=== PATIENT | female | born 1970 | race Caucasian/White ===

== ENCOUNTER 2018-12-08 22:02 | Emergency (ER) | payer MEDICAID, OTHER ==
[2018-12-08 22:11] VITALS: BP 134/86
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
[2018-12-08] MEDS ORDERED: Ketorolac 30 MG/ML SDV IVPUSH ONE (22:50)
[2018-12-08] MEDS: Sodium Chloride 0.9% 10 ML Syringe FLUSH PRN ×2 (23:04→23:16)
[2018-12-08] MEDS ORDERED: Pantoprazole 40 MG Vial IVPUSH STA (23:10)
[2018-12-08] MEDS ORDERED: Ondansetron 4 MG/2 ML SDV IVPUSH STA (23:12)
[2018-12-09] MEDS ORDERED: Pantoprazole 40 MG Vial IVPUSH SCH (08:00)
== END 2018-12-09 00:16 | disposition home or self-care (01) ==
LOC: LL.ED 22:02
DX: R09.1 Pleurisy (principal); I25.10 Atherosclerotic heart disease of native coronary artery without angina pectoris; I25.2 Old myocardial infarction; I10 Essential (primary) hypertension; J45.909 Unspecified asthma, uncomplicated; F17.210 Nicotine dependence, cigarettes, uncomplicated; Z88.0 Allergy status to penicillin; Z91.018 Allergy to other foods; Z88.8 Allergy status to other drugs, medicaments and biological substances; Z79.899 Other long term (current) drug therapy
CPT/HCPCS: 36415; 71046; 85025; 96374; 96375; 99284; C9113; J1885; J2405

== ENCOUNTER 2019-02-01 14:15 | Emergency (ER) | payer SELFPAY ==
[2019-02-01] MEDS ORDERED: Famotidine 20 MG/2 ML SDV IVPUSH ONE (14:18)
[2019-02-01] MEDS ORDERED: Sodium Chloride 0.9% 10 ML Syringe FLUSH PRN (14:18)
--- NOTE | 2019-02-01 14:18 | EDM.PDOC ---
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 Qualified Code(s): R10.84 - Generalized abdominal pain - Problem List Review Problem List Initiated/Reviewed/Updated: Yes - My Orders Last 24 Hours: My Active Orders 02/01/19 14:18 Cardiac Monitoring [RC] . DIRECTED EKG Documentation Completion [RC] ASDIRECTED Oxygen Therapy, ED [RC] CONTINUOUS Peripheral IV Care [RC] . DIRECTED Pulse Oximetry [RC] CONTINUOUS Up With Assistance [RC] PFP Vital Signs [RC] PFP Obtain Past Medical Record [OM.PC] Urgent Peripheral IV Insertion Adult [OM.PC] Stat Resuscitation Status Stat 02/01/19 14:20 Blood Culture x2 Reflex Set [OM.PC] Urgent 02/01/19 14:21 Abdomen Series w Chest 1V [CR] Stat 02/01/19 14:22 CULTURE BLOOD [BC] Stat 02/01/19 14:30 CULTURE STREP A CONFIRMATION [RM] Stat STREP SCRN A RAPID W CULT CONF [RM] Stat 02/01/19 14:45 CULTURE BLOOD [BC] Stat 02/01/19 15:15 CULTURE URINE [RM] Routine - Assessment/Plan Last 24 Hours: My Active Orders 02/01/19 14:18 Cardiac Monitoring [RC] . DIRECTED EKG Documentation Completion [RC] ASDIRECTED Oxygen Therapy, ED [RC] CONTINUOUS Peripheral IV Care [RC] . DIRECTED Pulse Oximetry [RC] CONTINUOUS Up With Assistance [RC] PFP Vital Signs [RC] PFP Obtain Past Medical Record [OM.PC] Urgent Peripheral IV Insertion Adult [OM.PC] Stat Resuscitation Status Stat 02/01/19 14:20 Blood Culture x2 Reflex Set [OM.PC] Urgent 02/01/19 14:21 Abdomen Series w Chest 1V [CR] Stat 02/01/19 14:22 CULTURE BLOOD [BC] Stat 02/01/19 14:30 CULTURE STREP A CONFIRMATION [RM] Stat STREP SCRN A RAPID W CULT CONF [RM] Stat 02/01/19 14:45 CULTURE BLOOD [BC] Stat 02/01/19 15:15 CULTURE URINE [RM] Routine Assessment:: As above Plan: As above. Extensive precautions were given to the patient and her sister, who are in agreement with the treatment plan. See Patient Instructions for further treatment and plan.
[2019-02-01 14:55] LABS: CHLORIDE,CL 102 mmol/L (98-107); SODIUM,NA 140 mmol/L (136-145)
[2019-02-01] MEDS ORDERED: LORazepam 2 MG/ML SDV IVPUSH ONE (15:32)
[2019-02-01] MEDS ORDERED: Pantoprazole 40 MG Vial IVPUSH ONE (15:33)
[2019-02-01] MEDS ORDERED: methylPREDNISolone Acetate 80 MG/ML SDV IM ONE (15:52)
[2019-02-01 16:15] VITALS: BP 144/85
== END 2019-02-01 16:40 | disposition home or self-care (01) ==
LOC: LL.ED 14:15
DX: R10.84 Generalized abdominal pain (principal); E03.9 Hypothyroidism, unspecified; Z71.6 Tobacco abuse counseling; F41.8 Other specified anxiety disorders; M25.50 Pain in unspecified joint; M15.0 Primary generalized (osteo)arthritis; J45.20 Mild intermittent asthma, uncomplicated; Z88.0 Allergy status to penicillin; I10 Essential (primary) hypertension; E66.9 Obesity, unspecified; F17.210 Nicotine dependence, cigarettes, uncomplicated; Z91.012 Allergy to eggs; Z79.899 Other long term (current) drug therapy
CPT/HCPCS: 36415; 74022; 80053; 81001; 82150; 82550; 82553; 83605; 83690; 83735; 83880; 84443; 84484; 84550; 85025; 85379; 85610; 85730; 87040; 87081; 87086; 87430; 87804; 93005; 96372; 96374; 96375; 99285-25; C9113; J1040; J2060; J3490

== ENCOUNTER 2019-07-09 17:50 | Observation (INO) | payer MEDICAID, OTHER ==
[2019-07-09] MEDS ORDERED: Aspirin 81 MG Tab.Chew PO ONE (18:13)
[2019-07-09 18:23] LABS: CHLORIDE,CL 104 mmol/L (98-107); SODIUM,NA 138 mmol/L (136-145)
[2019-07-09] MEDS: Sodium Chloride 0.9% 10 ML Syringe FLUSH PRN ×2 (18:31→22:27)
[2019-07-09] MEDS ORDERED: Iopamidol 755 Mg/ML 100 ML Bottle IVPUSH ONE (18:47)
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
[2019-07-09] MEDS ORDERED: Potassium Chloride 20 MEQ Tab.ER PO ONE (19:18)
[2019-07-09] MEDS ORDERED: Sodium Chloride 0.9% 500 ML IV SCH (19:30)
[2019-07-09] MEDS ORDERED: Ketorolac 30 MG/ML SDV IVPUSH ONE (20:05)
[2019-07-09 20:17] LABS: BARBITURATE SCREEN,URINE NEGATIVE (NEGATIVE); BENZODIAZEPINES SCREEN,URINE POSITIVE (NEGATIVE); TCA SCREEN,URINE NEGATIVE (NEGATIVE); THC SCREEN,URINE 50 NG/ML POSITIVE (NEGATIVE)
[2019-07-09] MEDS ORDERED: Pantoprazole 40 MG in Sodium Chloride 0.9% 100 ML IV ONE (21:23)
[2019-07-09] MEDS ORDERED: Morphine 2 MG/ML Syringe IVPUSH PRN (21:23)
[2019-07-09] MEDS ORDERED: Pantoprazole 40 MG Vial IVPUSH ONE (21:23)
[2019-07-09] MEDS ORDERED: Ondansetron 4 MG/2 ML SDV IVPUSH PRN (21:23)
[2019-07-09] MEDS ORDERED: CAFFEINE PO PRN (21:27)
[2019-07-09] MEDS ORDERED: Magnesium Citrate Solution 296 ML Bottle PO ONE (21:27)
[2019-07-09] MEDS ORDERED: Cyclobenzaprine 10 MG Tab PO PRN (21:27)
[2019-07-09] MEDS ORDERED: ACETAMINOPHEN PO PRN (21:27)
[2019-07-09] MEDS ORDERED: [UNRECOGNIZED DRUG - OTHER] PO PRN (21:27)
[2019-07-09] MEDS ORDERED: Albuterol 8 GM Inhaler INH PRN (21:27)
[2019-07-09] MEDS ORDERED: traMADol 50 MG Tab PO ONE (21:34)
[2019-07-10] MEDS: Sodium Chloride 0.9% 10 ML Syringe FLUSH PRN ×4 (02:36→13:58)
[2019-07-10] MEDS: Ketorolac 30 MG/ML SDV IVPUSH SCH ×3 (02:36→13:59)
[2019-07-10 07:38] LABS: CHLORIDE,CL 109 mmol/L (98-107); SODIUM,NA 144 mmol/L (136-145)
[2019-07-10] MEDS ORDERED: FLUoxetine 20 MG Cap PO SCH (08:00)
[2019-07-10] MEDS ORDERED: Diazepam 5 MG Tab PO SCH (08:00)
[2019-07-10] MEDS ORDERED: Iopamidol 612 MG/ML 100 ML Bottle IVPUSH ONE (11:27)
[2019-07-10] MEDS ORDERED: Diatrizoate Meglumine/Diatrizoate Sodium 37% 30 ML Bottle PO ONE (12:50)
[2019-07-10 14:12] VITALS: BP 116/72
--- NOTE | 2019-07-10 14:18 | PCM.DCSUM1 ---
Discharge Summary - Hospital Course Brief History: Admitted for further evaluation of chest pain complaint as well as abdominal pain. Low magnesium. Diagnosis: Stroke: No - Discharge Data Discharge Date: 07/10/19 Discharge Disposition: Home, Self-Care 01 Condition: Good - Discharge Diagnosis/Problem(s) (1) Chest pain SNOMED Code(s): 30531358 ICD Code: R07.9 - CHEST PAIN, UNSPECIFIED Status: Acute Priority: High Current Visit: Yes Onset Date: 07/09/19 Problem Details: Unknown etiology. No acute changes on EKG. Telemetry noted heart rate in 50s and 60s overnight. Troponins negative. Negative PE study. Also had discomfort near left lower rib border on abdominal exam. Chest pain resolved today. Continues to have upper left abdominal discomfort however. Qualifiers: Chest pain type: other chest pain Qualified Code(s): R07.89 - Other chest pain; R07.8 - Other chest pain (2) Left upper quadrant abdominal pain of unknown etiology SNOMED Code(s): 790923990, 754338216 ICD Code: R10.12 - LEFT UPPER QUADRANT PAIN Status: Acute Priority: High Current Visit: Yes Onset Date: 07/09/19 Problem Details: No change overnight or today. Able to eat/drink. No change in pain. Bowel movements made no difference in pain. Negative abdominal CT study. Normal white count/ LFTs. Uncertain if discomfort is related to food intolerance or patient's small hiatal hernia. Pain improves with Toradol. H.Pylorie testing requested (3) Hypomagnesemia SNOMED Code(s): 526614004 ICD Code: E83.42 - HYPOMAGNESEMIA Status: Acute Priority: Medium Current Visit: Yes Problem Details: Normal level today. Continue on supplementary Mg (4) Bradycardia SNOMED Code(s): 64970577 ICD Code: R00.1 - BRADYCARDIA, UNSPECIFIED Status: Acute Priority: Medium Current Visit: Yes Problem Details: No change in pain complaint when heart rate increases into 50-60 range. No SOB or lightheadedness. - Patient Summary/Data Hospital Course: Serial troponins negative. Telemetry showed heart rate in 50s-60s. Afebrile. WBC normal. LFTs/amylase/lipase normal. Patient able to eat and drink. Afebrile. Toradol improved pain. EKGs unremarkable for ischemic change. Negative chest CT in ER. Negative abdominal CT today. No focal cause for patient's pain complaint firmly identified. Patient would like to go home and see how things go over the next 24 hours. - Patient Instructions Diet: Usual Diet as Tolerated (recommend consideration of elimination diet discussed this morning. ) Activity: As Tolerated Driving: Do Not Drive Showering/Bathing: May Shower Other/Special Instructions: Follow up with your primary provider if pain continues more than 24 hours. Follow up otherwise as needed if further problems develop or you get worse. Get Mag level rechecked in one month. - Discharge Plan *PRESCRIPTION DRUG MONITORING PROGRAM REVIEWED*: Not Applicable *COPY OF PRESCRIPTION DRUG MONITORING REPORT IN PATIENT ROBBIN: Not Applicable Prescriptions/Med Rec: Gwen/Cell/Lipas/Malt/Prt/Lac/in [Digestive Enzymes] 1 each PO ASDIRECTED #90 capsule Magnesium Oxide [Magnesium] 500 mg PO DAILY #90 capsule Home Medications: Home Meds Levothyroxine 175 mcg PO DAILY 10/17/13 [History] Cyclobenzaprine [Flexeril] 10 mg PO TID PRN 11/23/17 [History] Diazepam [Valium] 1 tab PO DAILY 11/23/17 [History] Acetaminophen/Caffeine [Excedrin Tension Headache Cplt] 2 tab PO ASDIRECTED PRN 10/09/18 [History] Docosahexanoic Acid [ Dha] 1 tab PO DAILY 10/09/18 [History] FLUoxetine HCl [Prozac] 40 mg PO DAILY 10/09/18 [History] Albuterol Sulfate [Albuterol Sulfate Hfa] 2 puff INH Q6HR PRN 02/01/19 [History] Gwen/Cell/Lipas/Malt/Prt/Lac/in [Digestive Enzymes] 1 each PO ASDIRECTED #90 capsule 07/10/19 [Rx] Magnesium Oxide [Magnesium] 500 mg PO DAILY #90 capsule 07/10/19 [Rx] Patient Handouts: Abdominal Pain, Adult Forms: ED Department Discharge Referrals: PCP,Unknown [Primary Care Provider] - - Discharge Summary/Plan Comment DC Time >30 min.: No - General Info Date of Service: 07/10/19 Admission Dx/Problem (Free Text: Left upper quadrant pain along with left lower anterior and lateral chest pain. Subjective Update: Continues to have LUQ discomfort under left anterior rib margin. No radiation of pain. Chest pain resolved. Able to eat and drink. No fever/chills/nausea/ emesis. Functional Status: Reports: Pain Controlled (around 03/25. Patient declined narcotic pain meds. ). Denies: New Symptoms - Review of Systems General: Reports: Other (patient felt fatigued, mild light headed yesterday. Today those complaints have resolved. ). Denies: Fever, Weakness, Fatigue, Malaise, Chills, Night Sweats HEENT: Denies: Dysphasia, Headaches, Sinus Congestion, Rhinitis, Visual Changes Pulmonary: Reports: No Symptoms. Denies: Shortness of Breath, Pleuritic Chest Pain, Cough, Wheezing Cardiovascular: Denies: Chest Pain, Palpitations, Dyspnea on Exertion, Orthopnea , Lightheadedness Gastrointestinal: Reports: Abdominal Pain. Denies: Constipation, Decreased Appetite, Diarrhea, Difficulty Swallowing, Flatus, Hematochezia, Melena, Nausea , Vomiting Genitourinary: Reports: No Symptoms Musculoskeletal: Reports: No Symptoms (no acute changes from baseline) Skin: Reports: No Symptoms Neurological: Reports: No Symptoms Psychiatric: Reports: No Symptoms - Patient Data Vitals - Most Recent: Last Vital Signs Temp 36.6 C 07/10/19 12:00 Pulse 48 L 07/10/19 12:00 Resp 16 07/10/19 12:00 BP 116/72 07/10/19 12:00 Pulse Ox 96 07/10/19 12:00 Weight - Most Recent: 113.53 kg I&O - Last 24 hours: Intake & Output 07/09/19 07/10/19 07/10/19 22:59 06:59 14:59 Intake Total 1150 210 Output Total 300 100 Balance -300 1050 210 Lab Results - Last 24 hrs: Laboratory Results - last 24 hr 07/09/19 07/09/19 07/09/19 Range/Units 17:28 17:58 17:58 WBC 8.0 (4.0-10.2) K/uL RBC 4.56 (3.77-5.09) M/uL Hgb 14.0 D (11.7-15.5) g/dL Hct 41.2 (34.0-46.0) % MCV 90.4 (84.0-98.0) fL MCH 30.7 (28.2-33.3) pg MCHC 34.0 (31.7-36.0) g/dL RDW 15.0 H (11.2-14.1) % Plt Count 216 (150-350) K/uL Neut % (Auto) 60.0 (45.0-80.0) % Lymph % (Auto) 29.2 (10.0-50.0) % [place] % (Auto) 8.4 (2.0-14.0) % Eos % (Auto) 1.9 (0.0-5.0) % Baso % (Auto) 0.5 (0.0-2.0) % Neut # (Auto) 4.82 (1.40-7.00) K/uL Lymph # (Auto) 2.34 (0.50-3.50) K/uL [place] # (Auto) 0.67 (0.00-1.00) K/uL Eos # (Auto) 0.15 (0.00-0.50) K/uL Baso # (Auto) 0.04 (0.00-0.20) K/uL D-Dimer, Quantitative 563 H (0-400) ng/mL Sodium (136-145) mmol/L Potassium (3.5-5.1) mmol/L Chloride (98-107) mmol/L Carbon Dioxide (21.0-32.0) mmol/L BUN (7-18) mg/dL Creatinine (0.51-1.17) mg/dL Est Cr Clr Drug Dosing mL/min Estimated GFR (MDRD) mL/min Glucose (74-106) mg/dL Calcium (8.5-10.1) mg/dL Magnesium (1.8-2.4) mg/dL Total Bilirubin (0.2-1.0) mg/dL AST (15-37) U/L ALT (12-78) U/L Alkaline Phosphatase (46-116) IU/L Troponin I (0.000-0.056) ng/mL NT-Pro-B Natriuret Pep (0-125) pg/mL Total Protein (6.4-8.2) g/dL Albumin (3.4-5.0) g/dL Amylase (25-115) U/L Lipase (73-393) U/L TSH, Ultra Sensitive 0.296 L (0.358-3.740) mIU/mL Specimen Type Urine Color Urine Appearance Urine pH (5.0-9.0) Ur Specific [place] (1.005-1.030) Urine Protein (NEGATIVE) mg/dL Urine Glucose (UA) (NEGATIVE) mg/dL Urine Ketones (NEGATIVE) mg/dL Urine Occult Blood (NEGATIVE) Urine Nitrite (NEGATIVE) Urine Bilirubin (NEGATIVE) Urine Urobilinogen (0.2-1.0) E.U./dL Ur Leukocyte Esterase (NEGATIVE) Urine RBC /HPF Urine WBC /HPF Ur Epithelial Cells /LPF Urine Bacteria (NONE TO FEW) /HPF Urine Opiates Screen (NEGATIVE) Urine Methadone Screen (NEGATIVE) U Acetaminophen Screen (NEGATIVE) Ur Barbiturates Screen (NEGATIVE) Ur Tricyclics Screen (NEGATIVE) Ur Phencyclidine Scrn (NEGATIVE) Ur Amphetamine Screen (NEGATIVE) U Methamphetamines Scrn (NEGATIVE) U Benzodiazepines Scrn (NEGATIVE) U Cocaine Metab Screen (NEGATIVE) U Marijuana (THC) Screen (NEGATIVE) 07/09/19 07/09/19 07/09/19 Range/Units 17:58 19:00 19:00 WBC (4.0-10.2) K/uL RBC (3.77-5.09) M/uL Hgb (11.7-15.5) g/dL Hct (34.0-46.0) % MCV (84.0-98.0) fL MCH (28.2-33.3) pg MCHC (31.7-36.0) g/dL RDW (11.2-14.1) % Plt Count (150-350) K/uL Neut % (Auto) (45.0-80.0) % Lymph % (Auto) (10.0-50.0) % [place] % (Auto) (2.0-14.0) % Eos % (Auto) (0.0-5.0) % Baso % (Auto) (0.0-2.0) % Neut # (Auto) (1.40-7.00) K/uL Lymph # (Auto) (0.50-3.50) K/uL [place] # (Auto) (0.00-1.00) K/uL Eos # (Auto) (0.00-0.50) K/uL Baso # (Auto) (0.00-0.20) K/uL D-Dimer, Quantitative (0-400) ng/mL Sodium 138 (136-145) mmol/L Potassium 3.4 L (3.5-5.1) mmol/L Chloride 104 (98-107) mmol/L Carbon Dioxide 25.5 (21.0-32.0) mmol/L BUN 17 (7-18) mg/dL Creatinine 0.75 (0.51-1.17) mg/dL Est Cr Clr Drug Dosing 98.12 mL/min Estimated GFR (MDRD) > 60 mL/min Glucose 91 (74-106) mg/dL Calcium 8.9 (8.5-10.1) mg/dL Magnesium 1.5 L (1.8-2.4) mg/dL Total Bilirubin 0.3 (0.2-1.0) mg/dL AST 18 (15-37) U/L ALT 26 (12-78) U/L Alkaline Phosphatase 109 (46-116) IU/L Troponin I 0.000 (0.000-0.056) ng/mL NT-Pro-B Natriuret Pep 289 H (0-125) pg/mL Total Protein 6.9 (6.4-8.2) g/dL Albumin 3.5 (3.4-5.0) g/dL Amylase (25-115) U/L Lipase (73-393) U/L TSH, Ultra Sensitive (0.358-3.740) mIU/mL Specimen Type Urinblad Urine Color Yellow Urine Appearance Clear Urine pH 5.5 (5.0-9.0) Ur Specific [place] 1.015 (1.005-1.030) Urine Protein Negative (NEGATIVE) mg/dL Urine Glucose (UA) Negative (NEGATIVE) mg/dL Urine Ketones Negative (NEGATIVE) mg/dL Urine Occult Blood Negative (NEGATIVE) Urine Nitrite Negative (NEGATIVE) Urine Bilirubin Negative (NEGATIVE) Urine Urobilinogen 0.2 (0.2-1.0) E.U./dL Ur Leukocyte Esterase Negative (NEGATIVE) Urine RBC Not seen /HPF Urine WBC 0-5 /HPF Ur Epithelial Cells Few /LPF Urine Bacteria Few (NONE TO FEW) /HPF Urine Opiates Screen Negative (NEGATIVE) Urine Methadone Screen Negative (NEGATIVE) U Acetaminophen Screen Negative (NEGATIVE) Ur Barbiturates Screen Negative (NEGATIVE) Ur Tricyclics Screen Negative (NEGATIVE) Ur Phencyclidine Scrn Negative (NEGATIVE) Ur Amphetamine Screen Negative (NEGATIVE) U Methamphetamines Scrn Negative (NEGATIVE) U Benzodiazepines Scrn Positive H (NEGATIVE) U Cocaine Metab Screen Negative (NEGATIVE) U Marijuana (THC) Screen Positive H (NEGATIVE) 07/09/19 07/10/19 07/10/19 Range/Units 23:45 07:00 07:10 WBC (4.0-10.2) K/uL RBC (3.77-5.09) M/uL Hgb (11.7-15.5) g/dL Hct (34.0-46.0) % MCV (84.0-98.0) fL MCH (28.2-33.3) pg MCHC (31.7-36.0) g/dL RDW (11.2-14.1) % Plt Count (150-350) K/uL Neut % (Auto) (45.0-80.0) % Lymph % (Auto) (10.0-50.0) % [place] % (Auto) (2.0-14.0) % Eos % (Auto) (0.0-5.0) % Baso % (Auto) (0.0-2.0) % Neut # (Auto) (1.40-7.00) K/uL Lymph # (Auto) (0.50-3.50) K/uL [place] # (Auto) (0.00-1.00) K/uL Eos # (Auto) (0.00-0.50) K/uL Baso # (Auto) (0.00-0.20) K/uL D-Dimer, Quantitative (0-400) ng/mL Sodium 144 (136-145) mmol/L Potassium 4.1 (3.5-5.1) mmol/L Chloride 109 H (98-107) mmol/L Carbon Dioxide 29.5 (21.0-32.0) mmol/L BUN 20 H (7-18) mg/dL Creatinine 0.82 (0.51-1.17) mg/dL Est Cr Clr Drug Dosing 89.98 mL/min Estimated GFR (MDRD) > 60 mL/min Glucose 99 (74-106) mg/dL Calcium 8.3 L (8.5-10.1) mg/dL Magnesium 2.4 (1.8-2.4) mg/dL Total Bilirubin 0.3 (0.2-1.0) mg/dL AST 17 (15-37) U/L ALT 23 (12-78) U/L Alkaline Phosphatase 102 (46-116) IU/L Troponin I 0.000 0.012 (0.000-0.056) ng/mL NT-Pro-B Natriuret Pep (0-125) pg/mL Total Protein 6.0 L (6.4-8.2) g/dL Albumin 2.9 L (3.4-5.0) g/dL Amylase 47 (25-115) U/L Lipase 90 (73-393) U/L TSH, Ultra Sensitive (0.358-3.740) mIU/mL Specimen Type Urine Color Urine Appearance Urine pH (5.0-9.0) Ur Specific [place] (1.005-1.030) Urine Protein (NEGATIVE) mg/dL Urine Glucose (UA) (NEGATIVE) mg/dL Urine Ketones (NEGATIVE) mg/dL Urine Occult Blood (NEGATIVE) Urine Nitrite (NEGATIVE) Urine Bilirubin (NEGATIVE) Urine Urobilinogen (0.2-1.0) E.U./dL Ur Leukocyte Esterase (NEGATIVE) Urine RBC /HPF Urine WBC /HPF Ur Epithelial Cells /LPF Urine Bacteria (NONE TO FEW) /HPF Urine Opiates Screen (NEGATIVE) Urine Methadone Screen (NEGATIVE) U Acetaminophen Screen (NEGATIVE) Ur Barbiturates Screen (NEGATIVE) Ur Tricyclics Screen (NEGATIVE) Ur Phencyclidine Scrn (NEGATIVE) Ur Amphetamine Screen (NEGATIVE) U Methamphetamines Scrn (NEGATIVE) U Benzodiazepines Scrn (NEGATIVE) U Cocaine Metab Screen (NEGATIVE) U Marijuana (THC) Screen (NEGATIVE) 07/10/19 Range/Units 07:10 WBC 5.9 (4.0-10.2) K/uL RBC 4.51 (3.77-5.09) M/uL Hgb 13.8 (11.7-15.5) g/dL Hct 41.7 (34.0-46.0) % MCV 92.5 (84.0-98.0) fL MCH 30.6 (28.2-33.3) pg MCHC 33.1 (31.7-36.0) g/dL RDW 15.3 H (11.2-14.1) % Plt Count 201 (150-350) K/uL Neut % (Auto) 58.1 (45.0-80.0) % Lymph % (Auto) 27.8 (10.0-50.0) % [place] % (Auto) 10.6 (2.0-14.0) % Eos % (Auto) 3.2 (0.0-5.0) % Baso % (Auto) 0.3 (0.0-2.0) % Neut # (Auto) 3.41 (1.40-7.00) K/uL Lymph # (Auto) 1.63 (0.50-3.50) K/uL [place] # (Auto) 0.62 (0.00-1.00) K/uL Eos # (Auto) 0.19 (0.00-0.50) K/uL Baso # (Auto) 0.02 (0.00-0.20) K/uL D-Dimer, Quantitative (0-400) ng/mL Sodium (136-145) mmol/L Potassium (3.5-5.1) mmol/L Chloride (98-107) mmol/L Carbon Dioxide (21.0-32.0) mmol/L BUN (7-18) mg/dL Creatinine (0.51-1.17) mg/dL Est Cr Clr Drug Dosing mL/min Estimated GFR (MDRD) mL/min Glucose (74-106) mg/dL Calcium (8.5-10.1) mg/dL Magnesium (1.8-2.4) mg/dL Total Bilirubin (0.2-1.0) mg/dL AST (15-37) U/L ALT (12-78) U/L Alkaline Phosphatase (46-116) IU/L Troponin I (0.000-0.056) ng/mL NT-Pro-B Natriuret Pep (0-125) pg/mL Total Protein (6.4-8.2) g/dL Albumin (3.4-5.0) g/dL Amylase (25-115) U/L Lipase (73-393) U/L TSH, Ultra Sensitive (0.358-3.740) mIU/mL Specimen Type Urine Color Urine Appearance Urine pH (5.0-9.0) Ur Specific [place] (1.005-1.030) Urine Protein (NEGATIVE) mg/dL Urine Glucose (UA) (NEGATIVE) mg/dL Urine Ketones (NEGATIVE) mg/dL Urine Occult Blood (NEGATIVE) Urine Nitrite (NEGATIVE) Urine Bilirubin (NEGATIVE) Urine Urobilinogen (0.2-1.0) E.U./dL Ur Leukocyte Esterase (NEGATIVE) Urine RBC /HPF Urine WBC /HPF Ur Epithelial Cells /LPF Urine Bacteria (NONE TO FEW) /HPF Urine Opiates Screen (NEGATIVE) Urine Methadone Screen (NEGATIVE) U Acetaminophen Screen (NEGATIVE) Ur Barbiturates Screen (NEGATIVE) Ur Tricyclics Screen (NEGATIVE) Ur Phencyclidine Scrn (NEGATIVE) Ur Amphetamine Screen (NEGATIVE) U Methamphetamines Scrn (NEGATIVE) U Benzodiazepines Scrn (NEGATIVE) U Cocaine Metab Screen (NEGATIVE) U Marijuana (THC) Screen (NEGATIVE) Med Orders - Current: Current Medications Albuterol (Ventolin Hfa) 0 gm INH Q6H PRN PRN Reason: Shortness of Breath Cyclobenzaprine HCl (Flexeril) 10 mg PO TID PRN PRN Reason: Pain Diazepam (Valium.) 5 mg PO DAILY [facility] Last Admin: 07/10/19 08:35 Dose: 5 mg Fluoxetine HCl (Prozac) 40 mg PO DAILY [facility] Last Admin: 07/10/19 08:35 Dose: 40 mg Ketorolac Tromethamine (Toradol) 30 mg IVPUSH Q6H [facility] Stop: 07/14/19 02:01 Last Admin: 07/10/19 13:59 Dose: 30 mg Levothyroxine Sodium (Levothyroxine) 175 mcg PO ACBREAKFAST [facility] Last Admin: 07/10/19 08:35 Dose: 175 mcg Morphine Sulfate (Morphine) 2 mg IVPUSH Q2H PRN PRN Reason: Pain (severe 7-10) Last Admin: 07/10/19 12:28 Dose: 2 mg Ondansetron HCl (Zofran) 4 mg IVPUSH Q6H PRN PRN Reason: Nausea/Vomiting Sodium Chloride (Saline Flush) 10 ml FLUSH ASDIRECTED PRN PRN Reason: Keep Vein Open Last Admin: 07/10/19 13:58 Dose: 10 ml Discontinued Medications Aspirin (Aspirin) 324 mg PO ONETIME ONE Stop: 07/09/19 18:14 Last Admin: 07/09/19 18:29 Dose: 324 mg Diatrizoate Meglum/Diatrizoate Sod (Gastrografin 37%) 30 ml PO ONETIME ONE Stop: 07/10/19 12:51 Last Admin: 07/10/19 13:25 Dose: 30 ml Magnesium Sulfate/Dextrose 1 (gm/ Premix) 100 mls @ 100 mls/hr IV ONETIME ONE Stop: 07/09/19 19:47 Last Admin: 07/09/19 19:12 Dose: 100 mls/hr Sodium Chloride (Normal Saline) 500 mls @ 999 mls/hr IV .BOLUS LEONIE Last Admin: 07/09/19 19:49 Dose: 999 mls/hr Pantoprazole Sodium 40 mg/ (Sodium Chloride) 100 mls @ 200 mls/hr IV ONETIME ONE Stop: 07/09/19 21:52 Last Admin: 07/09/19 23:30 Dose: Not Given Magnesium Sulfate/Dextrose 1 (gm/ Premix) 100 mls @ 100 mls/hr IV ONETIME ONE Stop: 07/09/19 22:30 Last Admin: 07/09/19 22:28 Dose: 100 mls/hr Iopamidol (Isovue-370 (76%)) 100 ml IVPUSH ONETIME ONE Stop: 07/09/19 18:48 Last Admin: 07/09/19 19:27 Dose: 100 ml Iopamidol (Isovue-300 (61%)) 100 ml IVPUSH ONETIME ONE Stop: 07/10/19 11:28 Last Admin: 07/10/19 13:18 Dose: 100 ml Ketorolac Tromethamine (Toradol) 30 mg IVPUSH ONETIME ONE Stop: 07/09/19 20:06 Last Admin: 07/09/19 20:16 Dose: 30 mg Magnesium Citrate (Citrate Of Magnesia) 296 ml PO ONETIME ONE Stop: 07/09/19 21:28 Last Admin: 07/09/19 22:25 Dose: 296 ml Non-Formulary Medication (Acetaminophen/Caffeine [Excedrin Tension Headache Cplt ]) 2 tab PO ASDIRECTED PRN PRN Reason: Headache Pantoprazole Sodium (Protonix Iv) 40 mg IVPUSH ONETIME ONE Stop: 07/09/19 21:24 Last Admin: 07/09/19 22:26 Dose: 40 mg Potassium Chloride (Klor-Con M20) 40 meq PO ONETIME ONE Stop: 07/09/19 19:19 Last Admin: 07/09/19 19:44 Dose: 40 meq Tramadol HCl (Ultram) 100 mg PO ONETIME ONE Stop: 07/09/19 21:35 Last Admin: 07/09/19 22:25 Dose: 100 mg - Exam Quality Assessment: Reports: DVT Prophylaxis General: Reports: Alert, Oriented, Cooperative, No Acute Distress HEENT: Reports: Pupils Equal, Pupils Reactive, EOMI, Mucous Membr. Moist/[place] Neck: Reports: Supple Lungs: Reports: Clear to Auscultation, Normal Respiratory Effort Cardiovascular: Reports: Regular Rate, Regular Rhythm GI/Abdominal Exam: Normal Bowel Sounds, Soft, No Distention, Other (tender with palpation under anterior left rib margin. ). No: Guarding, Rigid, Rebound (Female) Exam: Deferred Rectal (Female) Exam: Deferred Back Exam: Denies: CVA Tenderness (L), CVA Tenderness (R), Muscle Spasm Extremities: Non-Tender, Normal Capillary Refill Skin: Reports: Warm, Dry Neurological: Reports: No New Focal Deficit Psy/Mental Status: Reports: Alert, Normal Affect, Normal Mood EKG INTERPRETATION EKG Date: 07/10/19 Time: 09:13 Rhythm: Other (bradycardia) Rate (Beats/Min): 50 [place]: Normal P-Wave: Present QRS: Normal ST-T: Normal QT: Normal Comparison: No Change
== END 2019-07-10 17:50 | disposition home or self-care (01) ==
LOC: LL.ED 17:50 → UNDOADMOB 20:43 → LL.MS 20:43 → UNDODISOB 07-10 17:50
PROVIDERS: ADMIT Emergency Medicine; ATTEND Emergency Medicine
DX: R07.89 Other chest pain (principal); R10.12 Left upper quadrant pain; E83.42 Hypomagnesemia; R00.1 Bradycardia, unspecified; Z79.899 Other long term (current) drug therapy
CPT/HCPCS: 36415; 71046; 71275; 74019; 74177; 80053; 80305-QW; 81001; 82150; 83690; 83735; 83880; 84443; 84484; 85025; 85379; 87338; 93005; 96365; 96366; 96375; 96376; 99285-25; A9270-GY; C9113; G0378; J1885; J2270; J3475; J7040; Q9963; Q9967

== ENCOUNTER 2019-10-15 12:09 | Emergency (ER) | payer MEDICAID ==
--- NOTE | 2019-10-15 12:20 | EDM.PDOC ---
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 [OM.PC] Stat 10/15/19 12:30 CULTURE BLOOD [BC] Stat CULTURE BLOOD [BC] Stat 10/15/19 13:06 CULTURE URINE [RM] Routine - Assessment/Plan Last 24 Hours: My Active Orders 10/15/19 12:15 CULTURE STREP A CONFIRMATION [RM] Stat STREP SCRN A RAPID W CULT CONF [RM] Stat 10/15/19 12:20 Communication Order [RC] ROUTINE Chest 2V [CR] Stat Blood Culture x2 Reflex Set [OM.PC] Stat Obtain Past Medical Record [OM.PC] Stat 10/15/19 12:30 CULTURE BLOOD [BC] Stat CULTURE BLOOD [BC] Stat 10/15/19 13:06 CULTURE URINE [RM] Routine Assessment:: As above Plan: As above. Extensive precautions were given to the patient, who is in agreement with the treatment plan. See Patient Instructions for further treatment and plan.
[2019-10-15 12:25] VITALS: BP 113/68; PULSE 60
[2019-10-15 12:57] LABS: CHLORIDE,CL 105 mmol/L (98-107); SODIUM,NA 142 mmol/L (136-145)
[2019-10-15] MEDS ORDERED: methylPREDNISolone Acetate 80 MG/ML SDV IM ONE (13:27)
[2019-10-15] MEDS ORDERED: Ketorolac 60 MG/2 ML SDV IM ONE (13:27)
== END 2019-10-15 13:45 | disposition home or self-care (01) ==
LOC: LL.ED 12:09
DX: R91.1 Solitary pulmonary nodule (principal); Z71.6 Tobacco abuse counseling; R09.1 Pleurisy; F19.90 Other psychoactive substance use, unspecified, uncomplicated; M15.0 Primary generalized (osteo)arthritis; J45.20 Mild intermittent asthma, uncomplicated; E03.9 Hypothyroidism, unspecified; E66.9 Obesity, unspecified; Z68.32 Body mass index [BMI] 32.0-32.9, adult; F41.8 Other specified anxiety disorders; Z88.0 Allergy status to penicillin; Z91.018 Allergy to other foods; Z91.012 Allergy to eggs; J45.909 Unspecified asthma, uncomplicated; F17.210 Nicotine dependence, cigarettes, uncomplicated; Z79.890 Hormone replacement therapy
CPT/HCPCS: 36415; 71046; 80053; 81001; 83605; 85025; 87040; 87081; 87086; 87430; 87804; 96372; 99285-25; J1040; J1885

== ENCOUNTER 2019-12-08 19:14 | Observation (INO) | payer MEDICAID ==
[2019-12-08] MEDS ORDERED: Pantoprazole 40 MG Vial IVPUSH ONE (19:37)
[2019-12-08] MEDS ORDERED: Famotidine 20 MG/2 ML SDV IVPUSH ONE (19:37)
[2019-12-08] MEDS ORDERED: Lactated Ringers 1,000 ML IV ONE (19:37)
--- NOTE | 2019-12-08 19:37 | EDM.PDOC ---
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 asthma, uncomplicated Abdominal pain Qualifiers: Abdominal location: generalized Qualified Code(s): R10.84 - Generalized abdominal pain - Discharge Information *PRESCRIPTION DRUG MONITORING PROGRAM REVIEWED*: Not Applicable *COPY OF PRESCRIPTION DRUG MONITORING REPORT IN PATIENT ROBBIN: Not Applicable Instructions: Health Risks of Smoking, Steps to Quit Smoking Forms: ED Department Discharge Care Plan Goals: See plan Sepsis Event Note - Evaluation Sepsis Screening Result: No Definite Risk - Focused Exam Vital Signs: Vital Signs Temp Pulse Resp BP Pulse Ox 12/08/19 19:20 35.8 C 82 18 129/92 H 100 Date Exam was Performed: 12/08/19 Time Exam was Performed: 23:08 - Problem List & Annotations (1) Abdominal pain SNOMED Code(s): 28538141 Code(s): R10.9 - UNSPECIFIED ABDOMINAL PAIN Status: Acute Priority: High Current Visit: Yes Onset Date: ~12/08/19 Annotation/Comment:: Negative CT scan of the abdomen results as above. Per recommendations from the radiologist a laparoscopic exploratory abdominal evaluation may be warranted depending on her clinical course. Per patient's request squamous cell treat with magnesium citrate and MiraLAX. She will be admitted to observation status with Dr. Joaquin to assume care in the a.m.. Recommend repeating x-rays and blood work on 12/10 prior to discharge. Strong anxiety component to patient's symptoms. Qualifiers: Abdominal location: generalized Qualified Code(s): R10.84 - Generalized abdominal pain (2) Asthma SNOMED Code(s): 902209918 Code(s): J45.909 - UNSPECIFIED ASTHMA, UNCOMPLICATED Status: Chronic Priority: Medium Current Visit: Yes Annotation/Comment:: No recent history of cough or bronchitic type symptoms. Symptoms stable with when necessary inhaler use. Qualifiers: Asthma severity: mild Asthma persistence: intermittent Asthma complication type: uncomplicated Qualified Code(s): J45.20 - Mild intermittent asthma, uncomplicated (3) Hypothyroidism (acquired) SNOMED Code(s): 542398753 Code(s): E03.9 - HYPOTHYROIDISM, UNSPECIFIED Status: Chronic Priority: Medium Current Visit: Yes Annotation/Comment:: Currently under therapy, however previously somewhat decreased TSH. Continue to observe closely by regular provider. (4) Illicit drug use, continuous SNOMED Code(s): 824167234 Code(s): F19.90 - OTHER PSYCHOACTIVE SUBSTANCE USE, UNSPECIFIED, UNCOMPLICATED Status: Chronic Priority: Medium Current Visit: Yes Annotation/Comment:: Current marijuana/topical THC use as above. Note previous use of multiple illicit drug use including IV drugs as a teenager. (5) Mixed anxiety depressive disorder SNOMED Code(s): 699037625 Code(s): F41.8 - OTHER SPECIFIED ANXIETY DISORDERS Status: Chronic Priority: Medium Current Visit: Yes Annotation/Comment:: Moderate to poor control based on today's exam. Continue to observe closely by her regular providers. Note history of distant- ? illicit drug use as above. No current medical therapy for depression other than diazepam for her anxiety. Initiate Lexapro in the a.m. (6) Osteoarthritis SNOMED Code(s): 006208552 Code(s): M19.90 - UNSPECIFIED OSTEOARTHRITIS, UNSPECIFIED SITE Status: Chronic Priority: Medium Current Visit: Yes Annotation/Comment:: Note history of chronic pain syndrome otherwise stable by history. Qualifiers: Osteoarthritis location: multiple joints Osteoarthritis type: primary Qualified Code(s): M15.0 - Primary generalized (osteo)arthritis (7) Tobacco abuse counseling SNOMED Code(s): 193457072, 853937141, 247250747 Code(s): Z71.6 - TOBACCO ABUSE COUNSELING Status: Chronic Priority: Medium Current Visit: Yes Annotation/Comment:: Tobacco cessation once again strongly encouraged strongly encouraged with information already previously provided. She was congratulated about trying to quit smoking. (8) Hypomagnesemia SNOMED Code(s): 233112974 Code(s): E83.42 - HYPOMAGNESEMIA Status: Chronic Priority: Medium Current Visit: Yes Annotation/Comment:: Patient has been noncompliant with her magnesium oxide supplement. Note that she did take magnesium citrate 3 days ago, however. - Problem List Review Problem List Initiated/Reviewed/Updated: Yes - My Orders Last 24 Hours: My Active Orders 12/08/19 19:37 Peripheral IV Care [RC] . DIRECTED Abdomen Series w Chest 1V [CR] Stat Sodium Chloride 0.9% [Saline Flush] 10 ml FLUSH ASDIRECTED PRN Obtain Past Medical Record [OM.PC] Urgent Peripheral IV Insertion Adult [OM.PC] Stat Resuscitation Status Stat 12/08/19 20:23 Abdomen Pelvis w Cont [CT] Stat 12/08/19 20:37 Cooling Warming Measures [RC] ASDIRECTED Heat Therapy [OM.PC] Routine 12/08/19 20:45 Magnesium Sulfate/D5W [Magnesium Sulfate in D5W 100 Premix] 1 gm in 100 ml IV ONETIME 12/08/19 21:50 CULTURE URINE [RM] Routine 12/08/19 Breakfast Nothing Per Oral Diet [DIET] - Assessment/Plan Admission H&P: Please use this note as an admission H&P Last 24 Hours: My Active Orders 12/08/19 19:37 Peripheral IV Care [RC] . DIRECTED Abdomen Series w Chest 1V [CR] Stat Sodium Chloride 0.9% [Saline Flush] 10 ml FLUSH ASDIRECTED PRN Obtain Past Medical Record [OM.PC] Urgent Peripheral IV Insertion Adult [OM.PC] Stat Resuscitation Status Stat 12/08/19 20:23 Abdomen Pelvis w Cont [CT] Stat 12/08/19 20:37 Cooling Warming Measures [RC] ASDIRECTED Heat Therapy [OM.PC] Routine 12/08/19 20:45 Magnesium Sulfate/D5W [Magnesium Sulfate in D5W 100 Premix] 1 gm in 100 ml IV ONETIME 12/08/19 21:50 CULTURE URINE [RM] Routine 12/08/19 Breakfast Nothing Per Oral Diet [DIET] Assessment:: As above Plan: As above. Extensive precautions were given to the patient, who is in agreement with the treatment plan. The patient's condition is stable enough for observation status and general supervision. Dr. Joaquin assumes care in the a.m.
[2019-12-08] MEDS ORDERED: Ondansetron 4 MG/2 ML SDV IVPUSH ONE (19:44)
[2019-12-08] MEDS: Sodium Chloride 0.9% 10 ML Syringe FLUSH PRN ×4 (20:05→23:53)
[2019-12-08 20:11] LABS: CHLORIDE,CL 103 mmol/L (98-107); SODIUM,NA 141 mmol/L (136-145)
[2019-12-08] MEDS ORDERED: Diatrizoate Meglumine/Diatrizoate Sodium 37% 30 ML Bottle PO ONE (20:33)
[2019-12-08] MEDS ORDERED: Metoclopramide 10 MG/2 ML SDV IVPUSH ONE (20:39)
[2019-12-08] MEDS ORDERED: Magnesium Sulfate/D5W 1 GM/100 ML BAG IV SCH (20:45)
[2019-12-08] MEDS: Iopamidol 612 MG/ML 100 ML Bottle IVPUSH ONE (22:05)
[2019-12-08] MEDS ORDERED: Acetaminophen 325 MG Tab PO PRN (23:28)
[2019-12-08] MEDS ORDERED: Ondansetron 4 MG/2 ML SDV IVPUSH PRN (23:28)
[2019-12-08] MEDS ORDERED: Magnesium Citrate Solution 296 ML Bottle PO ONE (23:28)
[2019-12-08] MEDS ORDERED: Polyethylene Glycol 3350 Powder 17 GM Packet PO ONE (23:28)
[2019-12-08] MEDS ORDERED: Albuterol 0.083% 2.5 MG/3 ML Neb Soln INH PRN (23:31)
[2019-12-08] MEDS ORDERED: Albuterol/Ipratropium 3.0-0.5 MG/3 ML Neb Soln NEB PRN (23:31)
[2019-12-08] MEDS ORDERED: Ketorolac 30 MG/ML SDV IVPUSH ONE (23:32)
[2019-12-08] MEDS ORDERED: Diazepam 5 MG Tab PO PRN (23:34)
[2019-12-09] MEDS: Ketorolac 15 MG/ML SDV IVPUSH PRN ×3 (05:00→19:50)
[2019-12-09] MEDS: Sodium Chloride 0.9% 10 ML Syringe FLUSH PRN ×2 (05:01→11:05)
[2019-12-09] MEDS: Escitalopram 20 MG Tab PO SCH (07:36)
[2019-12-09] MEDS: Pantoprazole 40 MG Vial IVPUSH SCH ×2 (07:37→19:50)
[2019-12-09] MEDS: Sodium Chloride 0.9% 10 ML Syringe FLUSH SCH ×2 (07:37→19:51)
[2019-12-09] MEDS ORDERED: GI Cocktail Oral Solution 30 ML PO ONE (16:36)
--- NOTE | 2019-12-09 16:41 | PCM.PN ---
- General Info Date of Service: 12/09/19 Admission Dx/Problem (Free Text): Abdominal pain, suspected constipation Subjective Update: Pain has improved. Tolerating some food. Has had multiple bowel movements. Functional Status: Reports: Other (Currently complaining of heart burn 02/23, abdominal discomfort 12/26) - Review of Systems General: Reports: Appetite (decreased). Denies: Fever, Fatigue, Malaise, Chills , Night Sweats HEENT: Reports: No Symptoms Pulmonary: Reports: No Symptoms. Denies: Shortness of Breath, Cough Cardiovascular: Reports: No Symptoms. Denies: Chest Pain Gastrointestinal: Reports: Abdominal Pain (LUQ, 12/26), Decreased Appetite, Other (heartburn). Denies: Nausea, Vomiting Genitourinary: Reports: No Symptoms Musculoskeletal: Reports: No Symptoms Skin: Reports: No Symptoms Neurological: Reports: No Symptoms Psychiatric: Reports: No Symptoms - Patient Data Vitals - Most Recent: Last Vital Signs Temp 36.6 C 12/09/19 15:14 Pulse 60 12/09/19 15:14 Resp 16 12/09/19 15:14 BP 105/68 12/09/19 15:14 Pulse Ox 96 12/09/19 15:14 Weight - Most Recent: 107.91 kg I&O - Last 24 Hours: Intake & Output 12/09/19 12/09/19 12/09/19 06:59 14:59 22:59 Intake Total 1300 1180 500 Output Total 500 100 600 Balance 800 1080 -100 Lab Results Last 24 Hours: Laboratory Results - last 24 hr 12/08/19 12/08/19 12/08/19 Range/Units 19:50 19:50 19:50 WBC 10.1 (4.0-10.2) K/uL RBC 5.11 H (3.77-5.09) M/uL Hgb 15.2 (11.7-15.5) g/dL Hct 46.6 H (34.0-46.0) % MCV 91.2 (84.0-98.0) fL MCH 29.7 (28.2-33.3) pg MCHC 32.6 (31.7-36.0) g/dL RDW 15.1 H (11.2-14.1) % Plt Count 258 (150-350) K/uL Neut % (Auto) 57.6 (45.0-80.0) % Lymph % (Auto) 32.7 (10.0-50.0) % [place] % (Auto) 8.6 (2.0-14.0) % Eos % (Auto) 0.8 (0.0-5.0) % Baso % (Auto) 0.3 (0.0-2.0) % Neut # (Auto) 5.79 (1.40-7.00) K/uL Lymph # (Auto) 3.29 (0.50-3.50) K/uL [place] # (Auto) 0.87 (0.00-1.00) K/uL Eos # (Auto) 0.08 (0.00-0.50) K/uL Baso # (Auto) 0.03 (0.00-0.20) K/uL PT 10.0 (9.5-12.0) SEC INR 0.9 APTT 28.5 (21.0-31.3) SEC Sodium (136-145) mmol/L Potassium (3.5-5.1) mmol/L Chloride (98-107) mmol/L Carbon Dioxide (21.0-32.0) mmol/L BUN (7-18) mg/dL Creatinine (0.51-1.17) mg/dL Est Cr Clr Drug Dosing mL/min Estimated GFR (MDRD) mL/min Glucose (74-106) mg/dL Lactic Acid (0.4-2.0) mmol/L Uric Acid (2.6-7.2) mg/dL Calcium (8.5-10.1) mg/dL Magnesium (1.8-2.4) mg/dL Total Bilirubin (0.2-1.0) mg/dL AST (15-37) U/L ALT (12-78) U/L Alkaline Phosphatase (46-116) IU/L Total Protein (6.4-8.2) g/dL Albumin (3.4-5.0) g/dL Amylase 60 (25-115) U/L Lipase (73-393) U/L Specimen Type Urine Color Urine Appearance Urine pH (5.0-9.0) Ur Specific [place] (1.005-1.030) Urine Protein (NEGATIVE) mg/dL Urine Glucose (UA) (NEGATIVE) mg/dL Urine Ketones (NEGATIVE) mg/dL Urine Occult Blood (NEGATIVE) Urine Nitrite (NEGATIVE) Urine Bilirubin (NEGATIVE) Urine Urobilinogen (0.2-1.0) E.U./dL Ur Leukocyte Esterase (NEGATIVE) Urine RBC /HPF Urine WBC /HPF Ur Epithelial Cells /LPF Urine Bacteria (NONE TO FEW) /HPF 12/08/19 12/08/19 12/08/19 Range/Units 19:50 19:50 21:50 WBC (4.0-10.2) K/uL RBC (3.77-5.09) M/uL Hgb (11.7-15.5) g/dL Hct (34.0-46.0) % MCV (84.0-98.0) fL MCH (28.2-33.3) pg MCHC (31.7-36.0) g/dL RDW (11.2-14.1) % Plt Count (150-350) K/uL Neut % (Auto) (45.0-80.0) % Lymph % (Auto) (10.0-50.0) % [place] % (Auto) (2.0-14.0) % Eos % (Auto) (0.0-5.0) % Baso % (Auto) (0.0-2.0) % Neut # (Auto) (1.40-7.00) K/uL Lymph # (Auto) (0.50-3.50) K/uL [place] # (Auto) (0.00-1.00) K/uL Eos # (Auto) (0.00-0.50) K/uL Baso # (Auto) (0.00-0.20) K/uL PT (9.5-12.0) SEC INR APTT (21.0-31.3) SEC Sodium 141 (136-145) mmol/L Potassium 3.6 (3.5-5.1) mmol/L Chloride 103 (98-107) mmol/L Carbon Dioxide 23.3 (21.0-32.0) mmol/L BUN 17 (7-18) mg/dL Creatinine 0.87 (0.51-1.17) mg/dL Est Cr Clr Drug Dosing 86.47 mL/min Estimated GFR (MDRD) > 60 mL/min Glucose 103 (74-106) mg/dL Lactic Acid 2.0 (0.4-2.0) mmol/L Uric Acid 6.0 (2.6-7.2) mg/dL Calcium 9.0 (8.5-10.1) mg/dL Magnesium 1.6 L (1.8-2.4) mg/dL Total Bilirubin 0.4 (0.2-1.0) mg/dL AST 17 (15-37) U/L ALT 27 (12-78) U/L Alkaline Phosphatase 110 (46-116) IU/L Total Protein 7.6 (6.4-8.2) g/dL Albumin 3.9 (3.4-5.0) g/dL Amylase (25-115) U/L Lipase 101 (73-393) U/L Specimen Type Urinvoid Urine Color Yellow Urine Appearance Slightly cloudy Urine pH 6.0 (5.0-9.0) Ur Specific [place] 1.015 (1.005-1.030) Urine Protein Negative (NEGATIVE) mg/dL Urine Glucose (UA) Negative (NEGATIVE) mg/dL Urine Ketones Negative (NEGATIVE) mg/dL Urine Occult Blood Negative (NEGATIVE) Urine Nitrite Negative (NEGATIVE) Urine Bilirubin Negative (NEGATIVE) Urine Urobilinogen 0.2 (0.2-1.0) E.U./dL Ur Leukocyte Esterase Negative (NEGATIVE) Urine RBC Not seen /HPF Urine WBC 0-5 /HPF Ur Epithelial Cells Moderate H /LPF Urine Bacteria Few (NONE TO FEW) /HPF David Results Last 24 Hours: Microbiology 12/08/19 19:37 Stool Occult Blood (DAVID) - Final Stool / Feces NEGATIVE OCCULT BLOOD REFERENCE RANGE: NEGATIVE Med Orders - Current: Current Medications Acetaminophen (Tylenol) 650 mg PO Q4H PRN PRN Reason: Pain Last Admin: 12/09/19 10:08 Dose: 650 mg Albuterol (Proventil Neb Soln) 2.5 mg INH Q2H PRN PRN Reason: SHORTNESS OF BREATH Albuterol/Ipratropium (Duoneb 3.0-0.5 Mg/3 Ml) 3 ml NEB Q4HRRT PRN PRN Reason: Dyspnea Diazepam (Valium.) 5 mg PO QID PRN PRN Reason: Anxiety Escitalopram Oxalate (Lexapro) 20 mg PO DAILY LEONIE Last Admin: 12/09/19 07:36 Dose: 20 mg Famotidine (Pepcid) 20 mg IVPUSH Q12H [facility] Magnesium Sulfate/Dextrose (Magnesium Sulfate In D5w 100 Premix) 1 gm in 100 mls @ 100 mls/hr IV ONETIME [facility] Last Admin: 12/08/19 22:18 Dose: 100 mls/hr Ketorolac Tromethamine (Toradol) 15 mg IVPUSH Q6H PRN PRN Reason: Pain (severe 7-10) Stop: 12/10/19 08:00 Last Admin: 12/09/19 11:03 Dose: 15 mg Levothyroxine Sodium (Levothyroxine) 175 mcg PO DAILY [facility] Last Admin: 12/09/19 07:36 Dose: 175 mcg Magnesium Oxide (Magnesium Oxide) 800 mg PO QPM [facility] Ondansetron HCl (Zofran) 4 mg IVPUSH Q6H PRN PRN Reason: Nausea/Vomiting Pantoprazole Sodium (Protonix Iv) 40 mg IVPUSH Q12H [facility] Last Admin: 12/09/19 07:37 Dose: 40 mg Sodium Chloride (Saline Flush) 10 ml FLUSH ASDIRECTED PRN PRN Reason: Keep Vein Open Last Admin: 12/09/19 11:05 Dose: 10 ml Sodium Chloride (Saline Flush) 10 ml FLUSH Q12HR [facility] Last Admin: 12/09/19 07:37 Dose: 10 ml Discontinued Medications Diatrizoate Meglum/Diatrizoate Sod (Gastrografin 37%) 30 ml PO ONETIME ONE Stop: 12/08/19 20:34 Diazepam (Valium) 2.5 mg IVPUSH ONETIME ONE Stop: 12/08/19 19:45 Last Admin: 12/08/19 19:56 Dose: 2.5 mg Famotidine (Pepcid) 40 mg IVPUSH ONETIME ONE Stop: 12/08/19 19:38 Last Admin: 12/08/19 19:54 Dose: 40 mg Lactated Ringer's (Ringers, Lactated) 1,000 mls @ 999 mls/hr IV .BOLUS ONE Stop: 12/08/19 20:37 Last Admin: 12/08/19 20:05 Dose: 999 mls/hr Iopamidol (Isovue-300 (61%)) 100 ml IVPUSH ONETIME ONE Stop: 12/08/19 20:33 Last Admin: 12/08/19 22:05 Dose: 100 ml Ketorolac Tromethamine (Toradol) 30 mg IVPUSH ONETIME ONE Stop: 12/08/19 23:33 Last Admin: 12/08/19 23:52 Dose: 30 mg Magnesium Citrate (Citrate Of Magnesia) 0 ml PO ONETIME ONE Stop: 12/08/19 23:29 Last Admin: 12/08/19 23:56 Dose: 296 ml Metoclopramide HCl (Reglan) 10 mg IVPUSH ONETIME ONE Stop: 12/08/19 20:40 Last Admin: 12/08/19 22:14 Dose: 10 mg Ondansetron HCl (Zofran) 4 mg IVPUSH ONETIME ONE Stop: 12/08/19 19:45 Last Admin: 12/08/19 19:58 Dose: 4 mg Pantoprazole Sodium (Protonix Iv) 40 mg IVPUSH ONETIME ONE Stop: 12/08/19 19:38 Last Admin: 12/08/19 19:54 Dose: 40 mg Polyethylene Glycol (Miralax) 17 gm PO ONETIME ONE Stop: 12/08/19 23:29 Last Admin: 12/08/19 23:56 Dose: 17 gm - Exam General: Alert, Oriented, Cooperative, No Acute Distress HEENT: Pupils Equal, Pupils Reactive, EOMI Neck: Supple Lungs: Clear to Auscultation, Normal Respiratory Effort Cardiovascular: Regular Rate, Regular Rhythm GI/Abdominal Exam: Soft, Tender (mild tenderness epigastric/LUQ), Other (Active bowel sounds all quadrants). No: Guarding, Rigid, Rebound (Female) Exam: Deferred Back Exam: No: Muscle Spasm Extremities: Normal Capillary Refill Skin: Warm, Dry Neurological: No New Focal Deficit Psy/Mental Status: Alert, Normal Affect, Normal Mood Sepsis Event Note - Evaluation Sepsis Screening Result: No Definite Risk - Focused Exam Vital Signs: Vital Signs Temp Pulse Resp BP Pulse Ox 12/09/19 15:14 36.6 C 60 16 105/68 96 12/09/19 12:00 99 12/09/19 10:57 36.5 C 54 L 17 105/66 99 12/09/19 08:00 100 12/09/19 07:46 121/64 01/24/20 07:42 36.1 C 63 17 89/46 L 100 Date Exam was Performed: 12/09/19 Time Exam was Performed: 16:36 - Problem List & Annotations (1) Abdominal pain SNOMED Code(s): 11411684 Code(s): R10.9 - UNSPECIFIED ABDOMINAL PAIN Status: Acute Priority: High Current Visit: Yes Onset Date: ~12/08/19 Qualifiers: Abdominal location: generalized Qualified Code(s): R10.84 - Generalized abdominal pain Annotation/Comment:: Negative CT scan of the abdomen results as above. Radiology notes scattered air/fluid levels on plain films which may be suggestive of ileus. Overall abdominal pain/distension has improved today s/p MagCitrate+Miralax. oxide furnace tender LUQ and patient complains of heart burn since lunch. Per recommendations from the radiologist a laparoscopic exploratory abdominal evaluation may be warranted depending on her clinical course. Recommend repeating x-rays and blood work on 12/10 prior to discharge. Strong anxiety component to patient's symptoms. Has long history of abdominal issues/constipation. Pending consult with GI in February. Patient has tried gluten-free diet in addition to dairy-free. Has also elimated some other foods per self report. Has not noticed any improvement with chronic GI issues with these changes. (2) Asthma SNOMED Code(s): 761790696 Code(s): J45.909 - UNSPECIFIED ASTHMA, UNCOMPLICATED Status: Chronic Priority: Medium Current Visit: Yes Qualifiers: Asthma severity: mild Asthma persistence: intermittent Asthma complication type: uncomplicated Qualified Code(s): J45.20 - Mild intermittent asthma, uncomplicated Annotation/Comment:: No recent history of cough or bronchitic type symptoms. Symptoms stable with when necessary inhaler use. (3) Hypomagnesemia SNOMED Code(s): 721616822 Code(s): E83.42 - HYPOMAGNESEMIA Status: Chronic Priority: Medium Current Visit: Yes Annotation/Comment:: Patient has been noncompliant with her magnesium oxide supplement. Note that she did take magnesium citrate 3 days ago, however. (4) Hypothyroidism (acquired) SNOMED Code(s): 209165770 Code(s): E03.9 - HYPOTHYROIDISM, UNSPECIFIED Status: Chronic Priority: Medium Current Visit: Yes Annotation/Comment:: Currently under therapy, however previously somewhat decreased TSH. Continue to observe closely by regular provider. (5) Illicit drug use, continuous SNOMED Code(s): 667423865 Code(s): F19.90 - OTHER PSYCHOACTIVE SUBSTANCE USE, UNSPECIFIED, UNCOMPLICATED Status: Chronic Priority: Medium Current Visit: Yes Annotation/Comment:: Current marijuana/topical THC use as above. Note previous use of multiple illicit drug use including IV drugs as a teenager. Patient denies use since that time. (6) Mixed anxiety depressive disorder SNOMED Code(s): 073661799 Code(s): F41.8 - OTHER SPECIFIED ANXIETY DISORDERS Status: Chronic Priority: Medium Current Visit: Yes Annotation/Comment:: Moderate to poor control based on today's exam. Continue to observe closely by her regular providers. Note history of distant- ? illicit drug use as above. No current medical therapy for depression other than diazepam for her anxiety. Initiate Lexapro in the a.m. (7) Osteoarthritis SNOMED Code(s): 129053828 Code(s): M19.90 - UNSPECIFIED OSTEOARTHRITIS, UNSPECIFIED SITE Status: Chronic Priority: Medium Current Visit: Yes Qualifiers: Osteoarthritis location: multiple joints Osteoarthritis type: primary Qualified Code(s): M15.0 - Primary generalized (osteo)arthritis Annotation/Comment:: Note history of chronic pain syndrome otherwise stable by history. (8) Tobacco abuse counseling SNOMED Code(s): 819440388, 307586559, 420297535 Code(s): Z71.6 - TOBACCO ABUSE COUNSELING Status: Chronic Priority: Medium Current Visit: Yes Annotation/Comment:: Tobacco cessation once again strongly encouraged strongly encouraged with information already previously provided. She was congratulated about trying to quit smoking. - Problem List Review Problem List Initiated/Reviewed/Updated: Yes - My Orders Last 24 Hours: My Active Orders 12/09/19 Breakfast Regular Diet [DIET] - Assessment Assessment:: as above - Plan Plan:: as above. Will keep patient under observation through tomorrow. If she continues to improve will plan on discharge home with close follow up by regular providers.
[2019-12-09] MEDS ORDERED: Magnesium Oxide 400 MG Tab PO SCH (18:00)
[2019-12-09] MEDS: Famotidine 20 MG/2 ML SDV IVPUSH SCH (19:50)
[2019-12-10 07:54] LABS: CHLORIDE,CL 107 mmol/L (98-107); SODIUM,NA 143 mmol/L (136-145)
[2019-12-10] MEDS: Pantoprazole 40 MG Vial IVPUSH SCH (08:15)
[2019-12-10] MEDS: Famotidine 20 MG/2 ML SDV IVPUSH SCH (08:15)
[2019-12-10] MEDS: Sodium Chloride 0.9% 10 ML Syringe FLUSH SCH (08:17)
[2019-12-10] MEDS: Escitalopram 20 MG Tab PO SCH (08:45)
[2019-12-10 09:44] VITALS: BP 104/48; PULSE 60
--- NOTE | 2019-12-10 11:56 | PCM.DCSUM1 ---
Discharge Summary - Hospital Course Brief History: Patient admitted observation for treatment of exacerbation of chronic abdominal pain-suspected to be in part due to constipation. Diagnosis: Stroke: No - Discharge Data Discharge Date: 12/10/19 Discharge Disposition: Home, Self-Care 01 Condition: Good - Referral to Home Health Primary Care Physician: PCP None - Discharge Diagnosis/Problem(s) (1) Abdominal pain SNOMED Code(s): 70234274 ICD Code: R10.9 - UNSPECIFIED ABDOMINAL PAIN Status: Acute Priority: High Current Visit: Yes Onset Date: ~12/08/19 Problem Details: Negative CT scan of abdomen performed in ER. Radiology notes scattered air/fluid levels on plain films which may be suggestive of ileus. Received MagCitrate+Miralax. Promoted multiple stools. Pain today is back to "baseline" per patient. She feels well enough to go home. Has long history of abdominal issues/constipation. Pending consult with GI in February. Patient has tried gluten-free diet in addition to dairy-free. Has also elimated some other foods per self report. Has not noticed any improvement with chronic GI issues with these changes. Qualifiers: Abdominal location: generalized Qualified Code(s): R10.84 - Generalized abdominal pain (2) Asthma SNOMED Code(s): 974154184 ICD Code: J45.909 - UNSPECIFIED ASTHMA, UNCOMPLICATED Status: Chronic Priority: Medium Current Visit: Yes Problem Details: No recent history of cough or bronchitic type symptoms. Symptoms stable with when necessary inhaler use. Qualifiers: Asthma severity: mild Asthma persistence: intermittent Asthma complication type: uncomplicated Qualified Code(s): J45.20 - Mild intermittent asthma, uncomplicated (3) Hypomagnesemia SNOMED Code(s): 463885066 ICD Code: E83.42 - HYPOMAGNESEMIA Status: Chronic Priority: Medium Current Visit: Yes Problem Details: Patient will be continued on oral supplementation s/p discharge. (4) Hypothyroidism (acquired) SNOMED Code(s): 477193577 ICD Code: E03.9 - HYPOTHYROIDISM, UNSPECIFIED Status: Chronic Priority: Medium Current Visit: Yes Problem Details: Currently under therapy, however previously somewhat decreased TSH. Continue to observe closely by regular provider. (5) Mixed anxiety depressive disorder SNOMED Code(s): 830574554 ICD Code: F41.8 - OTHER SPECIFIED ANXIETY DISORDERS Status: Chronic Priority: Medium Current Visit: Yes Problem Details: Not exhibiting excess anxiety today. Refuses Lexapro. To follow up with her primary provider. (6) Osteoarthritis SNOMED Code(s): 197987693 ICD Code: M19.90 - UNSPECIFIED OSTEOARTHRITIS, UNSPECIFIED SITE Status: Chronic Priority: Medium Current Visit: Yes Problem Details: Note history of chronic pain syndrome otherwise stable by history. Qualifiers: Osteoarthritis location: multiple joints Osteoarthritis type: primary Qualified Code(s): M15.0 - Primary generalized (osteo)arthritis (7) Tobacco abuse counseling SNOMED Code(s): 013556740, 506370843, 682545984 ICD Code: Z71.6 - TOBACCO ABUSE COUNSELING Status: Chronic Priority: Medium Current Visit: Yes Problem Details: Tobacco cessation once again strongly encouraged strongly encouraged with information already previously provided. She was congratulated about trying to quit smoking. - Patient Summary/Data Hospital Course: Patient had multiple bowel movements after receiving MagCitrate/Metamucil. Gradual improvement of abdominal discomfort afterwards. Vital signs/labs stable. Afebrile. Is now back to her usual baseline abdominal discomfort per self report. Would like to go home. Is following up with her primary provider regularly and has pending GI consult in February. Patient refused to take Lexapro and it was discontinued. Morning labs today unremarkable. No acute changes noted on abdominal films performed this morning. - Patient Instructions Diet: Elimination Diet (consider looking at protocol listed in [employer] [facility]/ lectin protocol since elimation of gluten and dairy showed limited improvement of symptoms. ) Activity: Apply Ice Driving: May Drive Today Showering/Bathing: May Shower Other/Special Instructions: Take your Magnesium at night as it might interfere with Thyroid medication if taken together. Follow up with GI as scheduled. Follow up with your primary provider in regards to any ongoing concerns in meantime. Digestive enzymes--see if they help your symptoms! Expanding your elimination diet as we discussed may be helpful. Follow up otherwise as needed if you have worsening problems - Discharge Plan *PRESCRIPTION DRUG MONITORING PROGRAM REVIEWED*: Not Applicable *COPY OF PRESCRIPTION DRUG MONITORING REPORT IN PATIENT ROBBIN: Not Applicable Prescriptions/Med Rec: Magnesium Oxide 800 mg PO QPM #90 tablet Home Medications: Home Meds Levothyroxine 175 mcg PO DAILY 10/17/13 [History] Diazepam [Valium] 1 tab PO DAILY 11/23/17 [History] Acetaminophen/Caffeine [Excedrin Tension Headache Cplt] 2 tab PO ASDIRECTED PRN 10/09/18 [History] Docosahexanoic Acid [ Dha] 1 tab PO DAILY 10/09/18 [History] Albuterol Sulfate [Albuterol Sulfate Hfa] 2 puff INH Q6HR PRN 02/01/19 [History] Non-Formulary Medication [NF Drug] 1 ml TOP QID PRN 12/08/19 [History] Magnesium Oxide 800 mg PO QPM #90 tablet 12/10/19 [Rx] Patient Handouts: Health Risks of Smoking, Steps to Quit Smoking Forms: ED Department Discharge Referrals: PCP,None [Primary Care Provider] - - Discharge Summary/Plan Comment DC Time >30 min.: No - General Info Date of Service: 12/10/19 Admission Dx/Problem (Free Text: Abdominal pain, suspected constipation Subjective Update: Feels back to baseline today. Does have chronic daily abdominal discomfort. No acute changes reported. Eating and drinking. Functional Status: Reports: Pain Controlled, Tolerating Diet, Ambulating, Urinating. Denies: New Symptoms - Review of Systems General: Reports: No Symptoms HEENT: Reports: No Symptoms Pulmonary: Reports: No Symptoms. Denies: Shortness of Breath, Cough, Sputum, Hemoptysis, Wheezing Cardiovascular: Reports: No Symptoms. Denies: Chest Pain, Lightheadedness Gastrointestinal: Reports: Abdominal Pain (chronic). Denies: Constipation, Diarrhea, Difficulty Swallowing, Hematochezia, Melena, Nausea, Vomiting Genitourinary: Reports: No Symptoms Musculoskeletal: Reports: Other (has chronic issues with arthritis pain neck/ limbs. No acute changes from baseline) Skin: Reports: No Symptoms Neurological: Reports: No Symptoms Psychiatric: Reports: No Symptoms - Patient Data Vitals - Most Recent: Last Vital Signs Temp 36.2 C 12/10/19 08:00 Pulse 60 12/10/19 08:00 Resp 16 12/10/19 08:00 BP 104/48 L 12/10/19 08:00 Pulse Ox 95 12/10/19 08:00 Weight - Most Recent: 107.91 kg I&O - Last 24 hours: Intake & Output 12/09/19 12/10/19 12/10/19 22:59 06:59 14:59 Intake Total 1460 800 360 Output Total 600 400 Balance 860 400 360 Lab Results - Last 24 hrs: Laboratory Results - last 24 hr 12/10/19 12/10/19 Range/Units 07:20 07:20 WBC 5.7 (4.0-10.2) K/uL RBC 4.41 (3.77-5.09) M/uL Hgb 13.0 D (11.7-15.5) g/dL Hct 41.1 (34.0-46.0) % MCV 93.2 (84.0-98.0) fL MCH 29.5 (28.2-33.3) pg MCHC 31.6 L (31.7-36.0) g/dL RDW 15.0 H (11.2-14.1) % Plt Count 190 (150-350) K/uL Neut % (Auto) 51.2 (45.0-80.0) % Lymph % (Auto) 36.6 (10.0-50.0) % [place] % (Auto) 10.2 (2.0-14.0) % Eos % (Auto) 1.6 (0.0-5.0) % Baso % (Auto) 0.4 (0.0-2.0) % Neut # (Auto) 2.93 (1.40-7.00) K/uL Lymph # (Auto) 2.09 (0.50-3.50) K/uL [place] # (Auto) 0.58 (0.00-1.00) K/uL Eos # (Auto) 0.09 (0.00-0.50) K/uL Baso # (Auto) 0.02 (0.00-0.20) K/uL Sodium 143 (136-145) mmol/L Potassium 4.3 (3.5-5.1) mmol/L Chloride 107 (98-107) mmol/L Carbon Dioxide 28.5 (21.0-32.0) mmol/L BUN 15 (7-18) mg/dL Creatinine 0.98 (0.51-1.17) mg/dL Est Cr Clr Drug Dosing 76.76 mL/min Estimated GFR (MDRD) > 60 mL/min Glucose 94 (74-106) mg/dL Calcium 8.3 L (8.5-10.1) mg/dL Magnesium 1.9 (1.8-2.4) mg/dL Total Bilirubin 0.5 (0.2-1.0) mg/dL AST 16 (15-37) U/L ALT 22 (12-78) U/L Alkaline Phosphatase 86 (46-116) IU/L Total Protein 5.9 L (6.4-8.2) g/dL Albumin 3.0 L (3.4-5.0) g/dL Amylase 58 (25-115) U/L Lipase 65 L (73-393) U/L EDIS Results - Last 24 hrs: Microbiology 12/08/19 21:50 Urine Culture - Final Urine, Clean Catch MIXED POSITIVE LAURA DAY 2 Med Orders - Current: Current Medications Acetaminophen (Tylenol) 650 mg PO Q4H PRN PRN Reason: Pain Last Admin: 12/09/19 10:08 Dose: 650 mg Albuterol (Proventil Neb Soln) 2.5 mg INH Q2H PRN PRN Reason: SHORTNESS OF BREATH Albuterol/Ipratropium (Duoneb 3.0-0.5 Mg/3 Ml) 3 ml NEB Q4HRRT PRN PRN Reason: Dyspnea Diazepam (Valium.) 5 mg PO QID PRN PRN Reason: Anxiety Last Admin: 12/10/19 00:10 Dose: 5 mg Escitalopram Oxalate (Lexapro) 20 mg PO DAILY [facility] Last Admin: 12/10/19 08:45 Dose: Not Given Famotidine (Pepcid) 20 mg IVPUSH Q12H [facility] Last Admin: 12/10/19 08:15 Dose: 20 mg Magnesium Sulfate/Dextrose (Magnesium Sulfate In D5w 100 Premix) 1 gm in 100 mls @ 100 mls/hr IV ONETIME [facility] Last Admin: 12/08/19 22:18 Dose: 100 mls/hr Levothyroxine Sodium (Levothyroxine) 175 mcg PO DAILY [facility] Last Admin: 12/10/19 08:15 Dose: 175 mcg Magnesium Oxide (Magnesium Oxide) 800 mg PO QPM [facility] Last Admin: 12/09/19 17:13 Dose: 800 mg Ondansetron HCl (Zofran) 4 mg IVPUSH Q6H PRN PRN Reason: Nausea/Vomiting Pantoprazole Sodium (Protonix Iv) 40 mg IVPUSH Q12H [facility] Last Admin: 12/10/19 08:15 Dose: 40 mg Sodium Chloride (Saline Flush) 10 ml FLUSH ASDIRECTED PRN PRN Reason: Keep Vein Open Last Admin: 12/09/19 11:05 Dose: 10 ml Sodium Chloride (Saline Flush) 10 ml FLUSH Q12HR [facility] Last Admin: 12/10/19 08:17 Dose: 10 ml Discontinued Medications Al Hydroxide/Mg Hydroxide (Gi Cocktail) 30 ml PO ONETIME ONE Stop: 12/09/19 16:37 Last Admin: 12/09/19 17:13 Dose: 30 ml Diatrizoate Meglum/Diatrizoate Sod (Gastrografin 37%) 30 ml PO ONETIME ONE Stop: 12/08/19 20:34 Last Admin: 12/09/19 20:52 Dose: Not Given Diazepam (Valium) 2.5 mg IVPUSH ONETIME ONE Stop: 12/08/19 19:45 Last Admin: 12/08/19 19:56 Dose: 2.5 mg Famotidine (Pepcid) 40 mg IVPUSH ONETIME ONE Stop: 12/08/19 19:38 Last Admin: 12/08/19 19:54 Dose: 40 mg Lactated Ringer's (Ringers, Lactated) 1,000 mls @ 999 mls/hr IV .BOLUS ONE Stop: 12/08/19 20:37 Last Admin: 12/08/19 20:05 Dose: 999 mls/hr Iopamidol (Isovue-300 (61%)) 100 ml IVPUSH ONETIME ONE Stop: 12/08/19 20:33 Last Admin: 12/08/19 22:05 Dose: 100 ml Ketorolac Tromethamine (Toradol) 30 mg IVPUSH ONETIME ONE Stop: 12/08/19 23:33 Last Admin: 12/08/19 23:52 Dose: 30 mg Ketorolac Tromethamine (Toradol) 15 mg IVPUSH Q6H PRN PRN Reason: Pain (severe 7-10) Stop: 12/10/19 08:00 Last Admin: 12/09/19 19:50 Dose: 15 mg Magnesium Citrate (Citrate Of Magnesia) 0 ml PO ONETIME ONE Stop: 12/08/19 23:29 Last Admin: 12/08/19 23:56 Dose: 296 ml Metoclopramide HCl (Reglan) 10 mg IVPUSH ONETIME ONE Stop: 12/08/19 20:40 Last Admin: 12/08/19 22:14 Dose: 10 mg Ondansetron HCl (Zofran) 4 mg IVPUSH ONETIME ONE Stop: 12/08/19 19:45 Last Admin: 12/08/19 19:58 Dose: 4 mg Pantoprazole Sodium (Protonix Iv) 40 mg IVPUSH ONETIME ONE Stop: 12/08/19 19:38 Last Admin: 12/08/19 19:54 Dose: 40 mg Polyethylene Glycol (Miralax) 17 gm PO ONETIME ONE Stop: 12/08/19 23:29 Last Admin: 12/08/19 23:56 Dose: 17 gm - Exam General: Reports: Alert, Oriented, Cooperative, No Acute Distress HEENT: Reports: Pupils Equal, Pupils Reactive, EOMI, Mucous Membr. Moist/[place] Neck: Reports: Supple Lungs: Reports: Clear to Auscultation, Normal Respiratory Effort Cardiovascular: Reports: Regular Rate, Regular Rhythm GI/Abdominal Exam: Soft, Non-Tender (patient reported no focal increased tenderness with palpation), No Distention, Other (bowel sounds mildly increased throughout. Patient reports she recently had eaten some food. ) (Female) Exam: Deferred Rectal (Female) Exam: Deferred Back Exam: Reports: Normal Inspection Extremities: Normal Capillary Refill Skin: Reports: Warm, Dry Neurological: Reports: No New Focal Deficit Psy/Mental Status: Reports: Alert, Normal Affect, Normal Mood
== END 2019-12-10 12:15 | disposition home or self-care (01) ==
LOC: LL.ED 19:14 → UNDOADMOB 23:08 → LL.MS 23:08
PROVIDERS: ADMIT Family Medicine; ATTEND Emergency Medicine
DX: R10.84 Generalized abdominal pain (principal); J45.20 Mild intermittent asthma, uncomplicated; M15.0 Primary generalized (osteo)arthritis; E03.9 Hypothyroidism, unspecified; F41.8 Other specified anxiety disorders; E83.42 Hypomagnesemia; E78.5 Hyperlipidemia, unspecified; K44.9 Diaphragmatic hernia without obstruction or gangrene; K21.9 Gastro-esophageal reflux disease without esophagitis; G89.4 Chronic pain syndrome; G43.909 Migraine, unspecified, not intractable, without status migrainosus; F17.210 Nicotine dependence, cigarettes, uncomplicated; E66.9 Obesity, unspecified; Z68.33 Body mass index [BMI] 33.0-33.9, adult; Z91.012 Allergy to eggs; Z91.018 Allergy to other foods; Z88.0 Allergy status to penicillin; Z88.6 Allergy status to analgesic agent; Z88.5 Allergy status to narcotic agent; Z79.51 Long term (current) use of inhaled steroids; Z79.899 Other long term (current) drug therapy
CPT/HCPCS: 36415; 74022; 74177; 80053; 81001; 82150; 82272; 83605; 83690; 83735; 84550; 85025; 85610; 85730; 87086; A9270; C9113; J1885; J2405; J2765; J3360; J3475; J3490; J7120; Q9967

== ENCOUNTER 2021-05-01 13:25 | Observation (INO) | payer MEDICAID ==
[2021-05-01] MEDS ORDERED: Aspirin 81 MG Tab.Chew PO ONE (13:40)
[2021-05-01] MEDS ORDERED: GI Cocktail Oral Solution 30 ML PO ONE (13:44)
[2021-05-01] MEDS ORDERED: Sodium Chloride 0.9% 1,000 ML IV ONE (13:44)
[2021-05-01] MEDS ORDERED: Ondansetron 4 MG/2 ML SDV IVPUSH ONE (13:46)
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
[2021-05-01] MEDS: Sodium Chloride 0.9% 10 ML Syringe FLUSH PRN ×2 (13:57→17:04)
[2021-05-01] MEDS ORDERED: Nitroglycerin 0.4 MG Tab.SL SL ONE ×4 (13:58→16:07)
[2021-05-01 14:06] LABS: PTT,PARTIAL THROMBOPLSTIN TIME 24.6 SEC (24.5-32.8)
[2021-05-01 14:17] LABS: CHLORIDE,CL 109 mmol/L (98-107); SODIUM,NA 145 mmol/L (136-145)
[2021-05-01] MEDS ORDERED: Acetaminophen 500 MG Tab PO ONE (14:40)
[2021-05-01] MEDS ORDERED: Ketorolac 30 MG/ML SDV IVPUSH ONE (16:28)
[2021-05-01] MEDS ORDERED: fentaNYL 100 MCG/2 ML SDV IVPUSH ONE (16:28)
[2021-05-01] MEDS ORDERED: Metoclopramide 10 MG/2 ML SDV IVPUSH ONE (16:29)
[2021-05-01] MEDS ORDERED: diphenhydrAMINE 50 MG/ML SDV IVPUSH ONE (16:29)
[2021-05-01] MEDS: Sodium Chloride 0.9% 1,000 ML IV SCH ×2 (17:09→23:43)
[2021-05-01] MEDS ORDERED: LORazepam 2 MG/ML SDV IVPUSH ONE (17:56)
[2021-05-01] MEDS ORDERED: Acetaminophen 325 MG Tab PO PRN (19:59)
[2021-05-01] MEDS ORDERED: Ondansetron 4 MG Tab.DIS PO PRN (19:59)
[2021-05-01] MEDS ORDERED: Albuterol 6.7 GM Inhaler INH PRN (20:01)
[2021-05-01] MEDS: Diazepam 5 MG Tab PO SCH (22:07)
[2021-05-02] MEDS: Sodium Chloride 0.9% 1,000 ML IV SCH (05:55)
[2021-05-02 07:43] LABS: CHLORIDE,CL 113 mmol/L (98-107); SODIUM,NA 146 mmol/L (136-145)
[2021-05-02] MEDS ORDERED: Famotidine 20 MG/2 ML SDV IVPUSH ONE (09:15)
[2021-05-02] MEDS: Pantoprazole 40 MG Vial IVPUSH SCH ×2 (10:10→20:48)
[2021-05-02] MEDS: Sodium Chloride 0.9% 10 ML Syringe FLUSH PRN ×3 (10:17→20:48)
[2021-05-02] MEDS: Furosemide 40 MG/4 ML VIAL IVPUSH SCH ×2 (11:28→18:04)
[2021-05-02] MEDS: Potassium Chloride 20 MEQ Tab.ER PO SCH ×2 (11:29→18:04)
--- NOTE | 2021-05-02 11:36 | PCM.PN ---
- General Info Date of Service: 05/02/21 Admission Dx/Problem (Free Text): Chest pain Functional Status: Reports: Pain Controlled, Tolerating Diet, Ambulating, Urinating, Incentive Spirometry. Denies: New Symptoms Pain Score: 0 (At time of exam however intermittent during this hospitalization) - Review of Systems General: Reports: No Symptoms. Denies: Fever, Weakness, Fatigue, Malaise, Chills, Night Sweats, Appetite HEENT: Denies: Dysphasia, Ear Pain, Eye Pain, Headaches, Post Nasal Drip, Sinus Congestion, Sore Throat, Rhinitis, Visual Changes Pulmonary: Reports: No Symptoms. Denies: Shortness of Breath, Pleuritic Chest Pain, Cough, Sputum, Hemoptysis, Wheezing Cardiovascular: Reports: Chest Pain. Denies: Palpitations, Dyspnea on Exertion, Orthopnea, PND, Edema, Lightheadedness Gastrointestinal: Reports: Other (Normal bowel movement earlier this morning). Denies: Abdominal Pain, Constipation, Decreased Appetite, Diarrhea, Difficulty Swallowing, Flatus, Hematochezia, Melena, Nausea, Vomiting Genitourinary: Reports: No Symptoms. Denies: Dysuria, Frequency, Burning, Urgency, Incontinence, Hematuria, Retention, Flank Pain Musculoskeletal: Reports: No Symptoms. Denies: Neck Pain, Shoulder Pain, Arm Pain, Back Pain, Leg Pain Skin: Reports: Other (Increased edema from IV fluids). Denies: Diaphoresis, Bruising, Pruritis, Rash Neurological: Reports: Other (Patient still sedated from IV fentanyl yesterday.). Denies: Confusion, Headache, Weakness Psychiatric: Reports: Depression, Anxiety. Denies: Confusion, Agitation, Cravings, Hallucinations - Patient Data Vitals - Most Recent: Last Vital Signs Temp 36.1 C 05/02/21 07:28 Pulse 66 05/02/21 07:28 Resp 14 05/02/21 07:28 BP 101/70 05/02/21 07:28 Pulse Ox 96 05/02/21 07:28 Vital Signs - 24 hr 05/01/21 05/01/21 05/01/21 13:26 13:45 14:05 Temperature [ 36.6 C 36.4 C Temporal] Pulse, 85 75 Peripheral [ Right Pulse Oximetry] Respiratory 21 H 18 Rate Blood Pressure 121/75 Blood Pressure [Left Upper Arm ] Blood Pressure 133/81 121/75 [Right Upper Arm] O2 Sat by Pulse 98 99 Oximetry 05/01/21 05/01/21 05/01/21 14:09 14:15 14:24 Temperature [ Temporal] Pulse, 73 Peripheral [ Right Pulse Oximetry] Respiratory 17 Rate Blood Pressure 111/74 103/74 Blood Pressure [Left Upper Arm ] Blood Pressure 103/74 [Right Upper Arm] O2 Sat by Pulse 94 L Oximetry 05/01/21 05/01/21 05/01/21 14:32 15:08 15:30 Temperature [ Temporal] Pulse, 75 62 62 Peripheral [ Right Pulse Oximetry] Respiratory 20 17 16 Rate Blood Pressure Blood Pressure [Left Upper Arm ] Blood Pressure 93/59 L 99/55 L 109/83 [Right Upper Arm] O2 Sat by Pulse 99 99 99 Oximetry 05/01/21 05/01/21 05/01/21 16:02 16:08 16:50 Temperature [ 36.7 C Temporal] Pulse, 60 63 Peripheral [ Right Pulse Oximetry] Respiratory 16 14 Rate Blood Pressure 109/83 Blood Pressure [Left Upper Arm ] Blood Pressure 97/59 L 102/66 [Right Upper Arm] O2 Sat by Pulse 97 98 Oximetry 05/01/21 05/01/21 05/01/21 17:32 19:07 23:44 Temperature [ 36.8 C 36.9 C Temporal] Pulse, 54 L 66 58 L Peripheral [ Right Pulse Oximetry] Respiratory 17 18 16 Rate Blood Pressure Blood Pressure 98/54 L [Left Upper Arm ] Blood Pressure 98/72 106/72 [Right Upper Arm] O2 Sat by Pulse 99 99 94 L Oximetry 05/02/21 05/02/21 04:00 07:28 Temperature [ 36.6 C 36.1 C Temporal] Pulse, 65 66 Peripheral [ Right Pulse Oximetry] Respiratory 16 14 Rate Blood Pressure Blood Pressure 96/59 L 101/70 [Left Upper Arm ] Blood Pressure [Right Upper Arm] O2 Sat by Pulse 95 96 Oximetry Weight - Most Recent: 112.899 kg I&O - Last 24 Hours: Intake & Output 05/01/21 05/02/21 05/02/21 22:59 06:59 14:59 Intake Total 2200 960 Output Total 350 Balance 1850 960 Imaging Impressions - Last 24 Hours: air sampling and monitoring shows intermittent moderate bradycardia in the 50s with average heart rate ranging in the 50s to 70s with some sinus arrhythmia noted but no other ectopy Lab Results Last 24 Hours: Laboratory Results - last 24 hr 05/01/21 05/01/21 05/01/21 Range/Units 13:30 13:30 13:30 WBC 7.5 (4.0-10.2) K/uL RBC 5.11 H (3.77-5.09) M/uL Hgb 15.2 D (11.7-15.5) g/dL Hct 45.9 (34.0-46.0) % MCV 89.8 D (84.0-98.0) fL MCH 29.7 (28.2-33.3) pg MCHC 33.1 (31.7-36.0) g/dL RDW 15.0 H (11.2-14.1) % Plt Count 245 (150-350) K/uL Neut % (Auto) 61.7 (45.0-80.0) % Lymph % (Auto) 27.1 (10.0-50.0) % [place] % (Auto) 8.1 (2.0-14.0) % Eos % (Auto) 2.7 (0.0-5.0) % Baso % (Auto) 0.4 (0.0-2.0) % Neut # (Auto) 4.63 (1.40-7.00) K/uL Lymph # (Auto) 2.03 (0.50-3.50) K/uL [place] # (Auto) 0.61 (0.00-1.00) K/uL Eos # (Auto) 0.20 (0.00-0.50) K/uL Baso # (Auto) 0.03 (0.00-0.20) K/uL PT 9.7 (9.5-12.0) SEC INR 1.0 APTT 24.6 (24.5-32.8) SEC D-Dimer, Quantitative (0-400) ng/mL Sodium 145 (136-145) mmol/L Potassium 3.7 (3.5-5.1) mmol/L Chloride 109 H (98-107) mmol/L Carbon Dioxide 22.1 (21.0-32.0) mmol/L BUN 16 (7-18) mg/dL Creatinine 0.77 (0.51-1.17) mg/dL Est Cr Clr Drug Dosing TNP Estimated GFR (MDRD) > 60 mL/min Glucose 93 (70-99) mg/dL Calcium 8.9 (8.5-10.1) mg/dL Magnesium 1.9 (1.8-2.4) mg/dL Total Bilirubin 0.4 (0.2-1.0) mg/dL Direct Bilirubin (0.0-0.2) mg/dL Indirect Bilirubin AST 18 (15-37) U/L ALT 37 (12-78) U/L Alkaline Phosphatase 105 (46-116) IU/L Troponin I 0.008 (0.000-0.056) ng/mL NT-Pro-B Natriuret Pep (0-125) pg/mL Total Protein 7.0 (6.4-8.2) g/dL Albumin 3.5 (3.4-5.0) g/dL Globulin Albumin/Globulin Ratio Amylase 66 (25-115) U/L Lipase 95 (73-393) U/L 05/01/21 05/01/21 05/01/21 Range/Units 16:50 16:50 19:37 WBC (4.0-10.2) K/uL RBC (3.77-5.09) M/uL Hgb (11.7-15.5) g/dL Hct (34.0-46.0) % MCV (84.0-98.0) fL MCH (28.2-33.3) pg MCHC (31.7-36.0) g/dL RDW (11.2-14.1) % Plt Count (150-350) K/uL Neut % (Auto) (45.0-80.0) % Lymph % (Auto) (10.0-50.0) % [place] % (Auto) (2.0-14.0) % Eos % (Auto) (0.0-5.0) % Baso % (Auto) (0.0-2.0) % Neut # (Auto) (1.40-7.00) K/uL Lymph # (Auto) (0.50-3.50) K/uL [place] # (Auto) (0.00-1.00) K/uL Eos # (Auto) (0.00-0.50) K/uL Baso # (Auto) (0.00-0.20) K/uL PT (9.5-12.0) SEC INR APTT (24.5-32.8) SEC D-Dimer, Quantitative 267 (0-400) ng/mL Sodium (136-145) mmol/L Potassium (3.5-5.1) mmol/L Chloride (98-107) mmol/L Carbon Dioxide (21.0-32.0) mmol/L BUN (7-18) mg/dL Creatinine (0.51-1.17) mg/dL Est Cr Clr Drug Dosing Estimated GFR (MDRD) mL/min Glucose (70-99) mg/dL Calcium (8.5-10.1) mg/dL Magnesium (1.8-2.4) mg/dL Total Bilirubin (0.2-1.0) mg/dL Direct Bilirubin (0.0-0.2) mg/dL Indirect Bilirubin AST (15-37) U/L ALT (12-78) U/L Alkaline Phosphatase (46-116) IU/L Troponin I 0.011 0.013 (0.000-0.056) ng/mL NT-Pro-B Natriuret Pep (0-125) pg/mL Total Protein (6.4-8.2) g/dL Albumin (3.4-5.0) g/dL Globulin Albumin/Globulin Ratio Amylase (25-115) U/L Lipase (73-393) U/L 05/02/21 05/02/21 05/02/21 Range/Units 07:15 07:15 07:15 WBC 5.5 (4.0-10.2) K/uL RBC 4.49 (3.77-5.09) M/uL Hgb 13.1 D (11.7-15.5) g/dL Hct 41.5 (34.0-46.0) % MCV 92.4 (84.0-98.0) fL MCH 29.2 (28.2-33.3) pg MCHC 31.6 L (31.7-36.0) g/dL RDW 15.0 H (11.2-14.1) % Plt Count 185 (150-350) K/uL Neut % (Auto) 54.3 (45.0-80.0) % Lymph % (Auto) 32.4 (10.0-50.0) % [place] % (Auto) 10.3 (2.0-14.0) % Eos % (Auto) 2.5 (0.0-5.0) % Baso % (Auto) 0.5 (0.0-2.0) % Neut # (Auto) 2.99 (1.40-7.00) K/uL Lymph # (Auto) 1.79 (0.50-3.50) K/uL [place] # (Auto) 0.57 (0.00-1.00) K/uL Eos # (Auto) 0.14 (0.00-0.50) K/uL Baso # (Auto) 0.03 (0.00-0.20) K/uL PT (9.5-12.0) SEC INR APTT (24.5-32.8) SEC D-Dimer, Quantitative (0-400) ng/mL Sodium 146 H (136-145) mmol/L Potassium 4.3 (3.5-5.1) mmol/L Chloride 113 H (98-107) mmol/L Carbon Dioxide 23.8 (21.0-32.0) mmol/L BUN 16 (7-18) mg/dL Creatinine 0.83 (0.51-1.17) mg/dL Est Cr Clr Drug Dosing 89.62 Estimated GFR (MDRD) > 60 mL/min Glucose 94 (70-99) mg/dL Calcium 7.5 L (8.5-10.1) mg/dL Magnesium 1.8 (1.8-2.4) mg/dL Total Bilirubin (0.2-1.0) mg/dL Direct Bilirubin (0.0-0.2) mg/dL Indirect Bilirubin AST (15-37) U/L ALT (12-78) U/L Alkaline Phosphatase (46-116) IU/L Troponin I 0.023 (0.000-0.056) ng/mL NT-Pro-B Natriuret Pep 288 H (0-125) pg/mL Total Protein (6.4-8.2) g/dL Albumin (3.4-5.0) g/dL Globulin Albumin/Globulin Ratio Amylase 78 (25-115) U/L Lipase 308 (73-393) U/L 05/02/21 Range/Units 07:15 WBC (4.0-10.2) K/uL RBC (3.77-5.09) M/uL Hgb (11.7-15.5) g/dL Hct (34.0-46.0) % MCV (84.0-98.0) fL MCH (28.2-33.3) pg MCHC (31.7-36.0) g/dL RDW (11.2-14.1) % Plt Count (150-350) K/uL Neut % (Auto) (45.0-80.0) % Lymph % (Auto) (10.0-50.0) % [place] % (Auto) (2.0-14.0) % Eos % (Auto) (0.0-5.0) % Baso % (Auto) (0.0-2.0) % Neut # (Auto) (1.40-7.00) K/uL Lymph # (Auto) (0.50-3.50) K/uL [place] # (Auto) (0.00-1.00) K/uL Eos # (Auto) (0.00-0.50) K/uL Baso # (Auto) (0.00-0.20) K/uL PT (9.5-12.0) SEC INR APTT (24.5-32.8) SEC D-Dimer, Quantitative (0-400) ng/mL Sodium (136-145) mmol/L Potassium (3.5-5.1) mmol/L Chloride (98-107) mmol/L Carbon Dioxide (21.0-32.0) mmol/L BUN (7-18) mg/dL Creatinine (0.51-1.17) mg/dL Est Cr Clr Drug Dosing Estimated GFR (MDRD) mL/min Glucose (70-99) mg/dL Calcium (8.5-10.1) mg/dL Magnesium (1.8-2.4) mg/dL Total Bilirubin 0.2 (0.2-1.0) mg/dL Direct Bilirubin 0.1 (0.0-0.2) mg/dL Indirect Bilirubin 0.1 AST 16 (15-37) U/L ALT 26 (12-78) U/L Alkaline Phosphatase 83 (46-116) IU/L Troponin I (0.000-0.056) ng/mL NT-Pro-B Natriuret Pep (0-125) pg/mL Total Protein 5.4 L (6.4-8.2) g/dL Albumin 2.6 L (3.4-5.0) g/dL Globulin 2.8 Albumin/Globulin Ratio 0.93 Amylase (25-115) U/L Lipase (73-393) U/L Laboratory Tests 05/01/21 05/01/21 05/01/21 Range/Units 13:30 13:30 13:30 WBC 7.5 (4.0-10.2) K/uL RBC 5.11 H (3.77-5.09) M/uL Hgb 15.2 D (11.7-15.5) g/dL Hct 45.9 (34.0-46.0) % MCV 89.8 D (84.0-98.0) fL MCH 29.7 (28.2-33.3) pg MCHC 33.1 (31.7-36.0) g/dL RDW 15.0 H (11.2-14.1) % Plt Count 245 (150-350) K/uL Neut % (Auto) 61.7 (45.0-80.0) % Lymph % (Auto) 27.1 (10.0-50.0) % [place] % (Auto) 8.1 (2.0-14.0) % Eos % (Auto) 2.7 (0.0-5.0) % Baso % (Auto) 0.4 (0.0-2.0) % Neut # (Auto) 4.63 (1.40-7.00) K/uL Lymph # (Auto) 2.03 (0.50-3.50) K/uL [place] # (Auto) 0.61 (0.00-1.00) K/uL Eos # (Auto) 0.20 (0.00-0.50) K/uL Baso # (Auto) 0.03 (0.00-0.20) K/uL PT 9.7 (9.5-12.0) SEC INR 1.0 APTT 24.6 (24.5-32.8) SEC D-Dimer, Quantitative (0-400) ng/mL Sodium 145 (136-145) mmol/L Potassium 3.7 (3.5-5.1) mmol/L Chloride 109 H (98-107) mmol/L Carbon Dioxide 22.1 (21.0-32.0) mmol/L BUN 16 (7-18) mg/dL Creatinine 0.77 (0.51-1.17) mg/dL Est Cr Clr Drug Dosing TNP Estimated GFR (MDRD) > 60 mL/min Glucose 93 (70-99) mg/dL Calcium 8.9 (8.5-10.1) mg/dL Magnesium 1.9 (1.8-2.4) mg/dL Total Bilirubin 0.4 (0.2-1.0) mg/dL Direct Bilirubin (0.0-0.2) mg/dL Indirect Bilirubin AST 18 (15-37) U/L ALT 37 (12-78) U/L Alkaline Phosphatase 105 (46-116) IU/L Troponin I 0.008 (0.000-0.056) ng/mL NT-Pro-B Natriuret Pep (0-125) pg/mL Total Protein 7.0 (6.4-8.2) g/dL Albumin 3.5 (3.4-5.0) g/dL Globulin Albumin/Globulin Ratio Amylase 66 (25-115) U/L Lipase 95 (73-393) U/L 05/01/21 05/01/21 05/01/21 Range/Units 16:50 16:50 19:37 WBC (4.0-10.2) K/uL RBC (3.77-5.09) M/uL Hgb (11.7-15.5) g/dL Hct (34.0-46.0) % MCV (84.0-98.0) fL MCH (28.2-33.3) pg MCHC (31.7-36.0) g/dL RDW (11.2-14.1) % Plt Count (150-350) K/uL Neut % (Auto) (45.0-80.0) % Lymph % (Auto) (10.0-50.0) % [place] % (Auto) (2.0-14.0) % Eos % (Auto) (0.0-5.0) % Baso % (Auto) (0.0-2.0) % Neut # (Auto) (1.40-7.00) K/uL Lymph # (Auto) (0.50-3.50) K/uL [place] # (Auto) (0.00-1.00) K/uL Eos # (Auto) (0.00-0.50) K/uL Baso # (Auto) (0.00-0.20) K/uL PT (9.5-12.0) SEC INR APTT (24.5-32.8) SEC D-Dimer, Quantitative 267 (0-400) ng/mL Sodium (136-145) mmol/L Potassium (3.5-5.1) mmol/L Chloride (98-107) mmol/L Carbon Dioxide (21.0-32.0) mmol/L BUN (7-18) mg/dL Creatinine (0.51-1.17) mg/dL Est Cr Clr Drug Dosing Estimated GFR (MDRD) mL/min Glucose (70-99) mg/dL Calcium (8.5-10.1) mg/dL Magnesium (1.8-2.4) mg/dL Total Bilirubin (0.2-1.0) mg/dL Direct Bilirubin (0.0-0.2) mg/dL Indirect Bilirubin AST (15-37) U/L ALT (12-78) U/L Alkaline Phosphatase (46-116) IU/L Troponin I 0.011 0.013 (0.000-0.056) ng/mL NT-Pro-B Natriuret Pep (0-125) pg/mL Total Protein (6.4-8.2) g/dL Albumin (3.4-5.0) g/dL Globulin Albumin/Globulin Ratio Amylase (25-115) U/L Lipase (73-393) U/L 05/02/21 05/02/21 05/02/21 Range/Units 07:15 07:15 07:15 WBC 5.5 (4.0-10.2) K/uL RBC 4.49 (3.77-5.09) M/uL Hgb 13.1 D (11.7-15.5) g/dL Hct 41.5 (34.0-46.0) % MCV 92.4 (84.0-98.0) fL MCH 29.2 (28.2-33.3) pg MCHC 31.6 L (31.7-36.0) g/dL RDW 15.0 H (11.2-14.1) % Plt Count 185 (150-350) K/uL Neut % (Auto) 54.3 (45.0-80.0) % Lymph % (Auto) 32.4 (10.0-50.0) % [place] % (Auto) 10.3 (2.0-14.0) % Eos % (Auto) 2.5 (0.0-5.0) % Baso % (Auto) 0.5 (0.0-2.0) % Neut # (Auto) 2.99 (1.40-7.00) K/uL Lymph # (Auto) 1.79 (0.50-3.50) K/uL [place] # (Auto) 0.57 (0.00-1.00) K/uL Eos # (Auto) 0.14 (0.00-0.50) K/uL Baso # (Auto) 0.03 (0.00-0.20) K/uL PT (9.5-12.0) SEC INR APTT (24.5-32.8) SEC D-Dimer, Quantitative (0-400) ng/mL Sodium 146 H (136-145) mmol/L Potassium 4.3 (3.5-5.1) mmol/L Chloride 113 H (98-107) mmol/L Carbon Dioxide 23.8 (21.0-32.0) mmol/L BUN 16 (7-18) mg/dL Creatinine 0.83 (0.51-1.17) mg/dL Est Cr Clr Drug Dosing 89.62 Estimated GFR (MDRD) > 60 mL/min Glucose 94 (70-99) mg/dL Calcium 7.5 L (8.5-10.1) mg/dL Magnesium 1.8 (1.8-2.4) mg/dL Total Bilirubin (0.2-1.0) mg/dL Direct Bilirubin (0.0-0.2) mg/dL Indirect Bilirubin AST (15-37) U/L ALT (12-78) U/L Alkaline Phosphatase (46-116) IU/L Troponin I 0.023 (0.000-0.056) ng/mL NT-Pro-B Natriuret Pep 288 H (0-125) pg/mL Total Protein (6.4-8.2) g/dL Albumin (3.4-5.0) g/dL Globulin Albumin/Globulin Ratio Amylase 78 (25-115) U/L Lipase 308 (73-393) U/L 05/02/21 Range/Units 07:15 WBC (4.0-10.2) K/uL RBC (3.77-5.09) M/uL Hgb (11.7-15.5) g/dL Hct (34.0-46.0) % MCV (84.0-98.0) fL MCH (28.2-33.3) pg MCHC (31.7-36.0) g/dL RDW (11.2-14.1) % Plt Count (150-350) K/uL Neut % (Auto) (45.0-80.0) % Lymph % (Auto) (10.0-50.0) % [place] % (Auto) (2.0-14.0) % Eos % (Auto) (0.0-5.0) % Baso % (Auto) (0.0-2.0) % Neut # (Auto) (1.40-7.00) K/uL Lymph # (Auto) (0.50-3.50) K/uL [place] # (Auto) (0.00-1.00) K/uL Eos # (Auto) (0.00-0.50) K/uL Baso # (Auto) (0.00-0.20) K/uL PT (9.5-12.0) SEC INR APTT (24.5-32.8) SEC D-Dimer, Quantitative (0-400) ng/mL Sodium (136-145) mmol/L Potassium (3.5-5.1) mmol/L Chloride (98-107) mmol/L Carbon Dioxide (21.0-32.0) mmol/L BUN (7-18) mg/dL Creatinine (0.51-1.17) mg/dL Est Cr Clr Drug Dosing Estimated GFR (MDRD) mL/min Glucose (70-99) mg/dL Calcium (8.5-10.1) mg/dL Magnesium (1.8-2.4) mg/dL Total Bilirubin 0.2 (0.2-1.0) mg/dL Direct Bilirubin 0.1 (0.0-0.2) mg/dL Indirect Bilirubin 0.1 AST 16 (15-37) U/L ALT 26 (12-78) U/L Alkaline Phosphatase 83 (46-116) IU/L Troponin I (0.000-0.056) ng/mL NT-Pro-B Natriuret Pep (0-125) pg/mL Total Protein 5.4 L (6.4-8.2) g/dL Albumin 2.6 L (3.4-5.0) g/dL Globulin 2.8 Albumin/Globulin Ratio 0.93 Amylase (25-115) U/L Lipase (73-393) U/L David Results Last 24 Hours: None Med Orders - Current: Current Medications Acetaminophen (Acetaminophen 325 Mg Tab) 650 mg PO Q4H PRN PRN Reason: Pain (Mild 1-3)/fever Last Admin: 05/02/21 11:29 Dose: 650 mg Documented by: Albuterol (Albuterol 6.7 Gm Inhaler) 0 gm INH Q6HR PRN PRN Reason: Shortness of Breath Diazepam (Diazepam 5 Mg Tab) 5 mg PO BEDTIME [facility] Last Admin: 05/01/21 22:07 Dose: Not Given Documented by: Furosemide (Furosemide 40 Mg/4 Ml Vial) 40 mg IVPUSH Q8H [facility] Last Admin: 05/02/21 11:28 Dose: 40 mg Documented by: Sodium Chloride (Normal Saline) 1,000 mls @ 150 mls/hr IV ASDIRECTED [facility] Last Admin: 05/02/21 05:55 Dose: 150 mls/hr Documented by: Levothyroxine Sodium (Levothyroxine 175 Mcg Tab) 175 mcg PO DAILY [facility] Last Admin: 05/02/21 07:38 Dose: 175 mcg Documented by: Ondansetron HCl (Ondansetron 4 Mg Tab.Dis) 4 mg PO Q4H PRN PRN Reason: Nausea/Vomiting Pantoprazole Sodium (Pantoprazole 40 Mg Vial) 40 mg IVPUSH Q12H [facility] Last Admin: 05/02/21 10:10 Dose: 40 mg Documented by: Potassium Chloride (Potassium Chloride 20 Meq Tab.Er) 20 meq PO TID LEONIE Last Admin: 05/02/21 11:29 Dose: 20 meq Documented by: Sodium Chloride (Sodium Chloride 0.9% 10 Ml Syringe) 10 ml FLUSH ASDIRECTED PRN PRN Reason: Keep Vein Open Last Admin: 05/02/21 11:28 Dose: 10 ml Documented by: Discontinued Medications Acetaminophen (Acetaminophen 500 Mg Tab) 1,000 mg PO ONETIME ONE Stop: 05/01/21 14:41 Last Admin: 05/01/21 15:16 Dose: 1,000 mg Documented by: Al Hydroxide/Mg Hydroxide (Gi Cocktail Oral Solution 30 Ml) 30 ml PO ONETIME ONE Stop: 05/01/21 13:45 Last Admin: 05/01/21 13:49 Dose: 30 ml Documented by: Aspirin (Aspirin 81 Mg Tab.Chew) 324 mg PO ONETIME ONE Stop: 05/01/21 13:41 Last Admin: 05/01/21 13:49 Dose: 324 mg Documented by: Diphenhydramine HCl (Diphenhydramine 50 Mg/Ml Sdv) 50 mg IVPUSH ONETIME ONE Stop: 05/01/21 16:30 Last Admin: 05/01/21 16:57 Dose: 50 mg Documented by: Famotidine (Famotidine 20 Mg/2 Ml Sdv) 40 mg IVPUSH ONETIME ONE Stop: 05/02/21 09:16 Last Admin: 05/02/21 10:17 Dose: 40 mg Documented by: Fentanyl (Fentanyl 100 Mcg/2 Ml Sdv) 100 mcg IVPUSH ONETIME ONE Stop: 05/01/21 16:29 Last Admin: 05/01/21 16:54 Dose: 100 mcg Documented by: Sodium Chloride (Normal Saline) 1,000 mls @ 999 mls/hr IV .BOLUS ONE Stop: 05/01/21 14:44 Last Admin: 05/01/21 13:57 Dose: 999 mls/hr Documented by: Ketorolac Tromethamine (Ketorolac 30 Mg/Ml Sdv) 30 mg IVPUSH ONETIME ONE Stop: 05/01/21 16:29 Last Admin: 05/01/21 16:53 Dose: 30 mg Documented by: Lorazepam (Lorazepam 2 Mg/Ml Sdv) 1 mg IVPUSH ONETIME ONE Stop: 05/01/21 17:57 Last Admin: 05/01/21 18:12 Dose: 1 mg Documented by: Metoclopramide HCl (Metoclopramide 10 Mg/2 Ml Sdv) 20 mg IVPUSH ONETIME ONE Stop: 05/01/21 16:30 Last Admin: 05/01/21 16:57 Dose: 20 mg Documented by: Nitroglycerin (Nitroglycerin 0.4 Mg Tab.Sl) 0.4 mg SL ONETIME ONE Stop: 05/01/21 13:59 Last Admin: 05/01/21 14:05 Dose: 0.4 mg Documented by: Nitroglycerin (Nitroglycerin 0.4 Mg Tab.Sl) 0.4 mg SL ONETIME ONE Stop: 05/01/21 14:13 Last Admin: 05/01/21 14:15 Dose: 0.4 mg Documented by: Nitroglycerin (Nitroglycerin 0.4 Mg Tab.Sl) 0.4 mg SL ONETIME ONE Stop: 05/01/21 14:24 Last Admin: 05/01/21 14:24 Dose: 0.4 mg Documented by: Nitroglycerin (Nitroglycerin 0.4 Mg Tab.Sl) 0.4 mg SL ONETIME ONE Stop: 05/01/21 16:08 Last Admin: 05/01/21 16:08 Dose: 0.4 mg Documented by: Ondansetron HCl (Ondansetron 4 Mg/2 Ml Sdv) 4 mg IVPUSH ONETIME ONE Stop: 05/01/21 13:47 Last Admin: 05/01/21 13:57 Dose: 4 mg Documented by: Potassium Chloride (Potassium Chloride 20 Meq Tab.Er) 20 meq PO TID LEONIE - Exam Quality Assessment: DVT Prophylaxis. No: Supplemental Oxygen, Central Line/PICC, Urine Catheter, Skin Breakdown, Restraints General: Alert, Oriented, Cooperative, Sedated (Borderline) HEENT: Pupils Equal, Pupils Reactive, EOMI, Mucous Membr. Moist/[place]. No: Scleral Icterus Neck: Supple, Trachea Midline, No JVD, No Thyromegaly. No: Lymphadenopathy Lungs: Normal Respiratory Effort, Rales (Mild bilateral basal). No: Rhonchi, Ru b, Wheezing Cardiovascular: Regular Rate, Regular Rhythm, No Murmurs. No: Gallops, Rubs GI/Abdominal Exam: Normal Bowel Sounds, Soft, Non-Tender, No Organomegaly, No Distention, No Abnormal Bruit, No Mass, Other (Obese). No: Guarding (Female) Exam: Deferred Back Exam: Normal Inspection, Full Range of Motion. No: CVA Tenderness (L), CVA Tenderness (R), Muscle Spasm Extremities: Normal Inspection, Normal Range of Motion, Non-Tender, No Pedal Edema, Normal Capillary Refill. No: Bud's Sign Peripheral Pulses: 2+: Radial (L), Radial (R), Dorsalis Pedis (L), Dorsalis Pedis (R) Skin: Warm, Dry, Intact, Other (Multiple tattoos). No: Rash, Ecchymosis Neurological: No New Focal Deficit, Other (No clinical orthostasis) Psy/Mental Status: Anxious (Mild to moderate), Depressed (Mild to moderate). No: Agitated, Hallucinations, Withdrawal Symptoms #1 Interpretation EKG Date: 05/02/21 Time: 09:30 Rhythm: Other (Sinus arrhythmia) Rate (Beats/Min): 67 [place]: Normal (Neutral) P-Wave: Present QRS: Normal (0.08 seconds) ST-T: Normal (Improved T wave inversion lead V1 and nonspecific ST changes in lead V2) QT: Normal CT/PQ Interval: 0.17 seconds with new mild poor wave progression in the anterior leads Comparison: Change From Previous EKG (As above since 05/01/2021) EKG Interpretation Comments: 1. No acute ischemic changes 2. Sinus arrhythmia - Patient Data Lab Results Last 24 hrs: Laboratory Results - last 24 hr 05/01/21 05/01/21 05/01/21 Range/Units 13:30 13:30 13:30 WBC 7.5 (4.0-10.2) K/uL RBC 5.11 H (3.77-5.09) M/uL Hgb 15.2 D (11.7-15.5) g/dL Hct 45.9 (34.0-46.0) % MCV 89.8 D (84.0-98.0) fL MCH 29.7 (28.2-33.3) pg MCHC 33.1 (31.7-36.0) g/dL RDW 15.0 H (11.2-14.1) % Plt Count 245 (150-350) K/uL Neut % (Auto) 61.7 (45.0-80.0) % Lymph % (Auto) 27.1 (10.0-50.0) % [place] % (Auto) 8.1 (2.0-14.0) % Eos % (Auto) 2.7 (0.0-5.0) % Baso % (Auto) 0.4 (0.0-2.0) % Neut # (Auto) 4.63 (1.40-7.00) K/uL Lymph # (Auto) 2.03 (0.50-3.50) K/uL [place] # (Auto) 0.61 (0.00-1.00) K/uL Eos # (Auto) 0.20 (0.00-0.50) K/uL Baso # (Auto) 0.03 (0.00-0.20) K/uL PT 9.7 (9.5-12.0) SEC INR 1.0 APTT 24.6 (24.5-32.8) SEC D-Dimer, Quantitative (0-400) ng/mL Sodium 145 (136-145) mmol/L Potassium 3.7 (3.5-5.1) mmol/L Chloride 109 H (98-107) mmol/L Carbon Dioxide 22.1 (21.0-32.0) mmol/L BUN 16 (7-18) mg/dL Creatinine 0.77 (0.51-1.17) mg/dL Est Cr Clr Drug Dosing TNP Estimated GFR (MDRD) > 60 mL/min Glucose 93 (70-99) mg/dL Calcium 8.9 (8.5-10.1) mg/dL Magnesium 1.9 (1.8-2.4) mg/dL Total Bilirubin 0.4 (0.2-1.0) mg/dL Direct Bilirubin (0.0-0.2) mg/dL Indirect Bilirubin AST 18 (15-37) U/L ALT 37 (12-78) U/L Alkaline Phosphatase 105 (46-116) IU/L Troponin I 0.008 (0.000-0.056) ng/mL NT-Pro-B Natriuret Pep (0-125) pg/mL Total Protein 7.0 (6.4-8.2) g/dL Albumin 3.5 (3.4-5.0) g/dL Globulin Albumin/Globulin Ratio Amylase 66 (25-115) U/L Lipase 95 (73-393) U/L 05/01/21 05/01/21 05/01/21 Range/Units 16:50 16:50 19:37 WBC (4.0-10.2) K/uL RBC (3.77-5.09) M/uL Hgb (11.7-15.5) g/dL Hct (34.0-46.0) % MCV (84.0-98.0) fL MCH (28.2-33.3) pg MCHC (31.7-36.0) g/dL RDW (11.2-14.1) % Plt Count (150-350) K/uL Neut % (Auto) (45.0-80.0) % Lymph % (Auto) (10.0-50.0) % [place] % (Auto) (2.0-14.0) % Eos % (Auto) (0.0-5.0) % Baso % (Auto) (0.0-2.0) % Neut # (Auto) (1.40-7.00) K/uL Lymph # (Auto) (0.50-3.50) K/uL [place] # (Auto) (0.00-1.00) K/uL Eos # (Auto) (0.00-0.50) K/uL Baso # (Auto) (0.00-0.20) K/uL PT (9.5-12.0) SEC INR APTT (24.5-32.8) SEC D-Dimer, Quantitative 267 (0-400) ng/mL Sodium (136-145) mmol/L Potassium (3.5-5.1) mmol/L Chloride (98-107) mmol/L Carbon Dioxide (21.0-32.0) mmol/L BUN (7-18) mg/dL Creatinine (0.51-1.17) mg/dL Est Cr Clr Drug Dosing Estimated GFR (MDRD) mL/min Glucose (70-99) mg/dL Calcium (8.5-10.1) mg/dL Magnesium (1.8-2.4) mg/dL Total Bilirubin (0.2-1.0) mg/dL Direct Bilirubin (0.0-0.2) mg/dL Indirect Bilirubin AST (15-37) U/L ALT (12-78) U/L Alkaline Phosphatase (46-116) IU/L Troponin I 0.011 0.013 (0.000-0.056) ng/mL NT-Pro-B Natriuret Pep (0-125) pg/mL Total Protein (6.4-8.2) g/dL Albumin (3.4-5.0) g/dL Globulin Albumin/Globulin Ratio Amylase (25-115) U/L Lipase (73-393) U/L 05/02/21 05/02/21 05/02/21 Range/Units 07:15 07:15 07:15 WBC 5.5 (4.0-10.2) K/uL RBC 4.49 (3.77-5.09) M/uL Hgb 13.1 D (11.7-15.5) g/dL Hct 41.5 (34.0-46.0) % MCV 92.4 (84.0-98.0) fL MCH 29.2 (28.2-33.3) pg MCHC 31.6 L (31.7-36.0) g/dL RDW 15.0 H (11.2-14.1) % Plt Count 185 (150-350) K/uL Neut % (Auto) 54.3 (45.0-80.0) % Lymph % (Auto) 32.4 (10.0-50.0) % [place] % (Auto) 10.3 (2.0-14.0) % Eos % (Auto) 2.5 (0.0-5.0) % Baso % (Auto) 0.5 (0.0-2.0) % Neut # (Auto) 2.99 (1.40-7.00) K/uL Lymph # (Auto) 1.79 (0.50-3.50) K/uL [place] # (Auto) 0.57 (0.00-1.00) K/uL Eos # (Auto) 0.14 (0.00-0.50) K/uL Baso # (Auto) 0.03 (0.00-0.20) K/uL PT (9.5-12.0) SEC INR APTT (24.5-32.8) SEC D-Dimer, Quantitative (0-400) ng/mL Sodium 146 H (136-145) mmol/L Potassium 4.3 (3.5-5.1) mmol/L Chloride 113 H (98-107) mmol/L Carbon Dioxide 23.8 (21.0-32.0) mmol/L BUN 16 (7-18) mg/dL Creatinine 0.83 (0.51-1.17) mg/dL Est Cr Clr Drug Dosing 89.62 Estimated GFR (MDRD) > 60 mL/min Glucose 94 (70-99) mg/dL Calcium 7.5 L (8.5-10.1) mg/dL Magnesium 1.8 (1.8-2.4) mg/dL Total Bilirubin (0.2-1.0) mg/dL Direct Bilirubin (0.0-0.2) mg/dL Indirect Bilirubin AST (15-37) U/L ALT (12-78) U/L Alkaline Phosphatase (46-116) IU/L Troponin I 0.023 (0.000-0.056) ng/mL NT-Pro-B Natriuret Pep 288 H (0-125) pg/mL Total Protein (6.4-8.2) g/dL Albumin (3.4-5.0) g/dL Globulin Albumin/Globulin Ratio Amylase 78 (25-115) U/L Lipase 308 (73-393) U/L // Range/Units 07:15 WBC (4.0-10.2) K/uL RBC (3.77-5.09) M/uL Hgb (11.7-15.5) g/dL Hct (34.0-46.0) % MCV (84.0-98.0) fL MCH (28.2-33.3) pg MCHC (31.7-36.0) g/dL RDW (11.2-14.1) % Plt Count (150-350) K/uL Neut % (Auto) (45.0-80.0) % Lymph % (Auto) (10.0-50.0) % [place] % (Auto) (2.0-14.0) % Eos % (Auto) (0.0-5.0) % Baso % (Auto) (0.0-2.0) % Neut # (Auto) (1.40-7.00) K/uL Lymph # (Auto) (0.50-3.50) K/uL [place] # (Auto) (0.00-1.00) K/uL Eos # (Auto) (0.00-0.50) K/uL Baso # (Auto) (0.00-0.20) K/uL PT (9.5-12.0) SEC INR APTT (24.5-32.8) SEC D-Dimer, Quantitative (0-400) ng/mL Sodium (136-145) mmol/L Potassium (3.5-5.1) mmol/L Chloride (98-107) mmol/L Carbon Dioxide (21.0-32.0) mmol/L BUN (7-18) mg/dL Creatinine (0.51-1.17) mg/dL Est Cr Clr Drug Dosing Estimated GFR (MDRD) mL/min Glucose (70-99) mg/dL Calcium (8.5-10.1) mg/dL Magnesium (1.8-2.4) mg/dL Total Bilirubin 0.2 (0.2-1.0) mg/dL Direct Bilirubin 0.1 (0.0-0.2) mg/dL Indirect Bilirubin 0.1 AST 16 (15-37) U/L ALT 26 (12-78) U/L Alkaline Phosphatase 83 (46-116) IU/L Troponin I (0.000-0.056) ng/mL NT-Pro-B Natriuret Pep (0-125) pg/mL Total Protein 5.4 L (6.4-8.2) g/dL Albumin 2.6 L (3.4-5.0) g/dL Globulin 2.8 Albumin/Globulin Ratio 0.93 Amylase (25-115) U/L Lipase (73-393) U/L Result Diagrams: 05/02/21 07:15 05/02/21 07:15 Sepsis Event Note - Evaluation Sepsis Screening Result: No Definite Risk - Focused Exam Vital Signs: Vital Signs Temp Pulse Resp BP Pulse Ox 05/02/21 07:28 36.1 C 66 14 101/70 96 05/02/21 04:00 36.6 C 65 16 96/59 L 95 05/01/21 23:44 36.9 C 58 L 16 98/54 L 94 L - Problem List & Annotations (1) Chest pain SNOMED Code(s): 98356699 Code(s): R07.9 - CHEST PAIN, UNSPECIFIED Status: Acute Priority: Medium Current Visit: Yes Onset Date: 05/01/21 Qualifiers: Chest pain type: unspecified Qualified Code(s): R07.9 - Chest pain, unspecified Annotation/Comment:: Atypical chest pain with negative work-up for acute [place] to this point. Noted mild progression of troponin I changes likely secondary to some mild fluid overload without evidence of significant CHF. IV Lasix initiated on 05/02. Continue cardiac work-up with transfer to [place] once beds are available and/or further work-up on an outpatient basis depending on her clinical course. Note possible GI and anxiety components to patient's symptoms as below. Inconsistent results with multiple doses of sublingual nitroglycerin to this point with some secondary hypotension. Patient is still somewhat sedated in the a.m. on 05/02 today secondary to previous IV fentanyl therapy, which will not be continued at this time. (2) Abdominal pain SNOMED Code(s): 25528084 Code(s): R10.9 - UNSPECIFIED ABDOMINAL PAIN Status: Chronic Priority: High Current Visit: Yes Onset Date: ~12/08/19 Qualifiers: Abdominal location: generalized Qualified Code(s): R10.84 - Generalized abdominal pain Annotation/Comment:: Previous history of suspected dysfunctional gallbladder with distant negative CT scan for cholelithiasis. IV Pepcid and IV Protonix initiated on 05/02. Abdominal ultrasound to be conducted on 05/02 with preliminary report from testing tech. Consider HIDA scan on an outpatient basis depending on her clinical course. Amylase and lipase levels normal both on 05/01 and 05/02/2021. No LFTs abnormal findings. (3) Asthma SNOMED Code(s): 042989000 Code(s): J45.909 - UNSPECIFIED ASTHMA, UNCOMPLICATED Status: Chronic Priority: Medium Current Visit: Yes Qualifiers: Asthma severity: mild Asthma persistence: intermittent Asthma complication type: uncomplicated Qualified Code(s): J45.20 - Mild intermittent asthma, uncomplicated Annotation/Comment:: No recent history of cough or bronchitic type symptoms. Symptoms stable with when necessary inhaler use. (4) Illicit drug use, continuous SNOMED Code(s): 936935111 Code(s): F19.90 - OTHER PSYCHOACTIVE SUBSTANCE USE, UNSPECIFIED, UNCOMPLICATED Status: Chronic Priority: Medium Current Visit: Yes Annotation/Comment:: Currently topical balm containing THC that is helpful for her arthritis pain. She obtains this legally when visiting family in [place] and when she was in [place]. No other use of any "illicit" drugs otherwise in 30+ years. (5) Mixed anxiety depressive disorder SNOMED Code(s): 015685673 Code(s): F41.8 - OTHER SPECIFIED ANXIETY DISORDERS Status: Chronic Priority: Medium Current Visit: Yes Annotation/Comment:: Moderate control with increased current family stressors. Continue to observe closely by regular providers. (6) Tobacco abuse counseling SNOMED Code(s): 432268747, 836250336, 126362519 Code(s): Z71.6 - TOBACCO ABUSE COUNSELING Status: Chronic Priority: Medium Current Visit: Yes Annotation/Comment:: Tobacco cessation once again strongly encouraged with information already previously provided. She was congratulated about trying to quit smoking. (7) Hypoalbuminemia SNOMED Code(s): 511337084 Code(s): E88.09 - OTH DISORDERS OF PLASMA-PROTEIN METABOLISM, NEC Status: Acute Priority: Medium Current Visit: Yes Onset Date: 05/02/21 Annotation/Comment:: Normal on admission. Observe for now. Note current obesity. (8) Hypocalcemia SNOMED Code(s): 9960451 Code(s): E83.51 - HYPOCALCEMIA Status: Acute Priority: Medium Current Visit: Yes Onset Date: 05/02/21 Annotation/Comment:: Normal on admission. Observe for now. (9) Hypothyroidism (acquired) SNOMED Code(s): 152571236 Code(s): E03.9 - HYPOTHYROIDISM, UNSPECIFIED Status: Chronic Priority: Medium Current Visit: Yes Annotation/Comment:: TSH on 05/02. Previously somewhat decreased TSH with current Synthroid supplementation. Continue to observe closely by regular provider. - Problem List Review Problem List Initiated/Reviewed/Updated: Yes - My Orders Last 24 Hours: My Active Orders 05/02/21 09:00 Pantoprazole [ProTONIX IV] 40 mg IVPUSH Q12H 05/02/21 09:18 EKG Documentation Completion [RC] ASDIRECTED 05/02/21 10:30 Furosemide [Lasix] 40 mg IVPUSH Q8H 05/02/21 10:35 Abdomen Comp [US] Urgent 05/02/21 12:00 Potassium Chloride [Klor-Con M20] 20 meq PO TID - Assessment Assessment:: As above - Plan Plan:: As above. Extensive precautions were given to the patient, who is in agreement with the treatment plan. Continue observation status for now with no bed availability at [facility]. Consider transfer to [facility] depending on her clinical course. Otherwise, likely discharge to home tomorrow with further work-up on an outpatient basis as above.
[2021-05-02] MEDS ORDERED: GI Cocktail Oral Solution 30 ML PO ONE (14:32)
[2021-05-02] MEDS ORDERED: GI Cocktail Oral Solution 30 ML ONE (14:53)
[2021-05-02] MEDS ORDERED: Potassium Chloride 20 MEQ Tab.ER PO SCH (18:00)
[2021-05-02] MEDS: Diazepam 5 MG Tab PO SCH (20:49)
[2021-05-02] MEDS ORDERED: Temazepam 15 MG Cap PO ONE (23:44)
[2021-05-03] MEDS: Furosemide 40 MG/4 ML VIAL IVPUSH SCH (03:12)
[2021-05-03] MEDS: Pantoprazole 40 MG Vial IVPUSH SCH (08:19)
[2021-05-03] MEDS: Potassium Chloride 20 MEQ Tab.ER PO SCH (08:21)
[2021-05-03] MEDS: Sodium Chloride 0.9% 10 ML Syringe FLUSH PRN (08:22)
[2021-05-03 09:01] LABS: CHLORIDE,CL 108 mmol/L (98-107); SODIUM,NA 144 mmol/L (136-145)
--- NOTE | 2021-05-03 09:18 | PCM.DCSUM1 ---
Discharge Summary - Hospital Course HPI Initial Comments: See emergency room note/admission H&P Brief History: See emergency room note/admission H&P Diagnosis: Stroke: No Modified [facility] Scale: No Symptoms at All Modified [facility] Scale Score: 0 - Discharge Data Discharge Date: 05/03/21 Discharge Disposition: Home, Self-Care 01 Condition: Good - Referral to Home Health Primary Care Physician: PCP None - Discharge Diagnosis/Problem(s) (1) Chest pain SNOMED Code(s): 75847634 ICD Code: R07.9 - CHEST PAIN, UNSPECIFIED Status: Acute Priority: Medium Current Visit: Yes Onset Date: 05/01/21 Problem Details: Atypical chest pain with negative work-up for acute AK. Significantly improved BNP with IV Lasix therapy with additionally improved troponin I, which is still normal. Various therapeutic options were discussed with the patient. Secondary to her intermittent moderate bradycardia the patient will be scheduled for a Cardiolite stress test with me in this facility on 05/09/2021. Activity, fall, injury, etc. precautions were discussed. Note previous mild progression of troponin I changes likely secondary to some mild fluid overload without evidence of significant CHF. IV Lasix initiated on 05/02 with no further oral Lasix or potassium therapy required at this time. Note possible GI and anxiety components to patient's symptoms as below. Inconsistent results with multiple doses of sublingual nitroglycerin to this point with some secondary hypotension. Patient was still somewhat sedated in the a.m. on 05/02 today secondary to previous IV fentanyl therapy, which will not be continued at this time. Qualifiers: Chest pain type: unspecified Qualified Code(s): R07.9 - Chest pain, unspecified (2) Bradycardia SNOMED Code(s): 31765024 ICD Code: R00.1 - BRADYCARDIA, UNSPECIFIED Status: Chronic Priority: Medium Current Visit: Yes Problem Details: As above. No aggravating medications at this time. (3) Abdominal pain SNOMED Code(s): 94972581 ICD Code: R10.9 - UNSPECIFIED ABDOMINAL PAIN Status: Chronic Priority: High Current Visit: Yes Onset Date: ~12/08/19 Problem Details: Negative abdominal ultrasound on 05/02/2021 for cholelithiasis with mild splenomegaly noted. Previous history of suspected dysfunctional gallbladder with distant negative CT scan for cholelithiasis. IV Pepcid and IV Protonix initiated on 05/02 with excellent results during this hospitalization. HIDA scan on an outpatient basis once her cardiac status has been determined. Amylase and lipase levels normal both on 05/01 and 05/02/2021. No LFTs abnormal findings. Qualifiers: Abdominal location: generalized Qualified Code(s): R10.84 - Generalized abdominal pain (4) Asthma SNOMED Code(s): 572454708 ICD Code: J45.909 - UNSPECIFIED ASTHMA, UNCOMPLICATED Status: Chronic Priority: Medium Current Visit: Yes Problem Details: No recent history of cough or bronchitic type symptoms. Symptoms stable with when necessary inhaler use. Qualifiers: Asthma severity: mild Asthma persistence: intermittent Asthma complication type: uncomplicated Qualified Code(s): J45.20 - Mild intermittent asthma, uncomplicated (5) Illicit drug use, continuous SNOMED Code(s): 417976756 ICD Code: F19.90 - OTHER PSYCHOACTIVE SUBSTANCE USE, UNSPECIFIED, UNCOMPLICATED Status: Chronic Priority: Medium Current Visit: Yes Problem Details: Currently topical balm containing THC that is helpful for her arthritis pain. She obtains this legally when visiting family in [place] and when she was in [place]. No other use of any "illicit" drugs otherwise in 30+ years. (6) Mixed anxiety depressive disorder SNOMED Code(s): 324309214 ICD Code: F41.8 - OTHER SPECIFIED ANXIETY DISORDERS Status: Chronic Priority: Medium Current Visit: Yes Problem Details: Moderate control with increased current family stressors. Continue to observe closely by regular providers. (7) Tobacco abuse counseling SNOMED Code(s): 972204964, 683818011, 943116024 ICD Code: Z71.6 - TOBACCO ABUSE COUNSELING Status: Chronic Priority: Medium Current Visit: Yes Problem Details: Tobacco cessation once again strongly encouraged with information already previously provided. She was congratulated about trying to quit smoking. (8) Hypoalbuminemia SNOMED Code(s): 967532007 ICD Code: E88.09 - OTH DISORDERS OF PLASMA-PROTEIN METABOLISM, NEC Status: Acute Priority: Medium Current Visit: Yes Onset Date: 05/02/21 Problem Details: Normal on admission. Observe for now. Note current obesity. (9) Hypocalcemia SNOMED Code(s): 9298460 ICD Code: E83.51 - HYPOCALCEMIA Status: Acute Priority: Medium Current Visit: Yes Onset Date: 05/02/21 Problem Details: Normal on admission. Observe for now. (10) Hypothyroidism (acquired) SNOMED Code(s): 011828498 ICD Code: E03.9 - HYPOTHYROIDISM, UNSPECIFIED Status: Chronic Priority: Medium Current Visit: Yes Problem Details: TSH somewhat elevated on 04/30/2021 with previously somewhat decreased TSH. Close follow-up by regular provider with adjustment of this medical therapy at time of the above follow-up visit. Consider repeat TSH in 4 weeks. - Patient Summary/Data Operative Procedure(s) Performed: None Complications: None Consults: None Labs Pending at D/C: None Recommended Follow-up Testing/Procedures: As per discharge instructions Planned Operative Procedure(s) after DC: None Hospital Course: The patient was placed in observation status in this facility on telemetry with negative for acute AK, although intermittent bradycardia as above. Chest pain completely resolved prior to patient's discharge with additional resolved epigastric therapy with high-dose IV Protonix therapy. Further GI work-up as above once her Cardiolite stress test has been completed and her cardiac status has been clarified. Otherwise no complications during this hospitalization. - Patient Instructions Diet: Fluid Restriction Diet, Other: Heart healthy Activity: No Strenuous Activities (50% maximum with strict fall and injury precautions) Driving: May Drive Today Showering/Bathing: May Shower Notify Provider of: Fever, Increased Pain, Nausea and/or Vomiting Other/Special Instructions: 1. Followup with your regular provider in 10-14 days as directed for reevaluation and recommended repeat CBC, comprehensive metabolic panel, troponin I, and BNP. Discuss Cardiolite stress results at that time with further referral to cardiology depending on these results. Bring these discharge instructions with you to that visit. 2. Cardiolite stress test to be conducted in this facility on 05/09/2021. 3. Consider scheduling a HIDA scan at time of the above follow-up visit, if your cardiac status has been clar ified/normal. 4. Discuss mildly elevated TSH during this hospitalization at the above follow-up visit with possible adjustment of your Synthroid therapy at that time and recommended repeat TSH in 4 weeks. 5. Immediately after this visit verify that your cellular telephone's voicemail has been activated and is empty. Also verify that your home telephone's answering machine is operating properly and has space to receive messages. Note that it is sometimes necessary for us to be able to contact you at a later date to discuss your medical care. 6. Please remember that we are ALWAYS here for you and want to answer any questions you may have. Feel free to call the hospital any time and we call you back JONNY. 7. Stop all tobacco use JONNY as directed/per provided information and consider contacting Quit [facility]ne, etc.. - Discharge Plan *PRESCRIPTION DRUG MONITORING PROGRAM REVIEWED*: Not Applicable *COPY OF PRESCRIPTION DRUG MONITORING REPORT IN PATIENT ROBBIN: Not Applicable Prescriptions/Med Rec: Omeprazole 20 mg PO BIDAC #60 cap.sr Home Medications: Home Meds Levothyroxine 175 mcg PO DAILY 10/17/13 [History] Diazepam [Valium] 1 tab PO DAILY 11/23/17 [History] Acetaminophen/Caffeine [Excedrin Tension Headache Cplt] 2 tab PO ASDIRECTED PRN 10/09/18 [History] Albuterol Sulfate [Albuterol Sulfate Hfa] 2 puff INH Q6HR PRN 02/01/19 [History] Non-Formulary Medication [NF Drug] 1 ml TOP QID PRN 12/08/19 [History] Pnv No.103/Folic/Om3s/Fish Oil [ Gummies] 1 ea PO DAILY 05/01/21 [History] Acetaminophen [Tylenol] 650 mg PO Q4H PRN tablet 05/03/21 [Rx] Omeprazole 20 mg PO BIDAC #60 cap.sr 05/03/21 [Rx] Oxygen Therapy Mode: Room Air Patient Handouts: Nonspecific Chest Pain, Adult, [id number], Health Risks of Smoking, Steps to Quit Smoking, [id number] Forms: ED Department Discharge Referrals: PCP,None [Primary Care Provider] - - Discharge Summary/Plan Comment DC Time >30 min.: Yes (Coordination of care ) Discharge Summary/Plan Comment: As above. Extensive precautions were given to the patient, who is in agreement with the treatment plan. See Patient Instructions for further treatment and plan. - General Info Date of Service: 05/03/21 Admission Dx/Problem (Free Text: Chest pain Functional Status: Reports: Pain Controlled, Tolerating Diet, Ambulating, Incentive Spirometry. Denies: New Symptoms Numeric/FACES Score: 0 - Review of Systems General: Reports: No Symptoms. Denies: Fever, Weakness, Fatigue, Malaise, Chills, Night Sweats, Appetite (Good) HEENT: Reports: No Symptoms. Denies: Ear Pain, Eye Pain, Post Nasal Drip, Sinus Congestion, Sore Throat, Rhinitis, Visual Changes Pulmonary: Reports: No Symptoms. Denies: Shortness of Breath, Pleuritic Chest Pain, Cough, Sputum, Hemoptysis, Wheezing Cardiovascular: Reports: No Symptoms. Denies: Chest Pain, Palpitations, Dyspnea on Exertion, Orthopnea, Edema, Lightheadedness Gastrointestinal: Reports: No Symptoms, Other (Two mildly loose stools yesterday). Denies: Abdominal Pain, Constipation, Decreased Appetite, Diarrhea, Difficulty Swallowing, Hematochezia, Melena, Nausea, Vomiting Genitourinary: Reports: No Symptoms. Denies: Dysuria, Frequency, Burning, Pain, Urgency, Incontinence, Hematuria, Retention, Flank Pain Musculoskeletal: Reports: No Symptoms. Denies: Neck Pain, Shoulder Pain, Arm Pain, Back Pain, Leg Pain Skin: Reports: No Symptoms. Denies: Diaphoresis, Bruising Neurological: Reports: No Symptoms. Denies: Confusion, Dizziness, Headache, Numbness, Paresthesia, Syncope, Tingling, Difficulty Walking, Weakness Psychiatric: Reports: No Symptoms. Denies: Confusion, Depression, Anxiety, Agitation, Cravings, Hallucinations - Patient Data Vitals - Most Recent: Last Vital Signs Temp 36.6 C 05/02/21 18:00 Pulse 64 05/02/21 18:00 Resp 14 05/02/21 18:00 BP 114/70 05/02/21 18:00 Pulse Ox 100 05/02/21 18:00 Vital Signs - 24 hr 05/02/21 05/02/21 11:53 18:00 Temperature [ 36.2 C 36.6 C Temporal] Pulse, 55 L 64 Peripheral [ Right Pulse Oximetry] Respiratory 14 14 Rate Blood Pressure 122/66 114/70 [Left Upper Arm ] O2 Sat by Pulse 97 100 Oximetry Weight - Most Recent: 112.899 kg I&O - Last 24 hours: Intake & Output 05/02/21 05/03/21 05/03/21 22:59 06:59 14:59 Intake Total 1140 520 Output Total 1000 Balance 140 520 Imaging Impressions - Last 24 hrs: panel monitor shows normal sinus rhythm in the 70s with intermittent brief moderate bradycardia in the 40s to 50s yesterday with no other significant arrhythmia Abdominal ultrasound on 05/02/2021 showed some mild splenomegaly but no cholelithiasis, fatty liver, etc. Chest x-ray, portable, on 05/01/2021 showed no evidence of cardiomegaly, CHF, pulmonary infiltrates, etc. Lab Results - Last 24 hrs: Laboratory Results - last 24 hr 05/02/21 05/02/21 05/03/21 Range/Units 07:15 07:15 07:40 WBC 6.4 (4.0-10.2) K/uL RBC 4.64 (3.77-5.09) M/uL Hgb 13.7 (11.7-15.5) g/dL Hct 42.4 (34.0-46.0) % MCV 91.4 (84.0-98.0) fL MCH 29.5 (28.2-33.3) pg MCHC 32.3 (31.7-36.0) g/dL RDW 14.7 H (11.2-14.1) % Plt Count 208 (150-350) K/uL Neut % (Auto) 59.4 (45.0-80.0) % Lymph % (Auto) 27.9 (10.0-50.0) % [place] % (Auto) 10.2 (2.0-14.0) % Eos % (Auto) 2.2 (0.0-5.0) % Baso % (Auto) 0.3 (0.0-2.0) % Neut # (Auto) 3.77 (1.40-7.00) K/uL Lymph # (Auto) 1.77 (0.50-3.50) K/uL [place] # (Auto) 0.65 (0.00-1.00) K/uL Eos # (Auto) 0.14 (0.00-0.50) K/uL Baso # (Auto) 0.02 (0.00-0.20) K/uL Sodium (136-145) mmol/L Potassium (3.5-5.1) mmol/L Chloride (98-107) mmol/L Carbon Dioxide (21.0-32.0) mmol/L BUN (7-18) mg/dL Creatinine (0.51-1.17) mg/dL Est Cr Clr Drug Dosing mL/min Estimated GFR (MDRD) mL/min Glucose (70-99) mg/dL Calcium (8.5-10.1) mg/dL Total Bilirubin 0.2 (0.2-1.0) mg/dL Direct Bilirubin 0.1 (0.0-0.2) mg/dL Indirect Bilirubin 0.1 AST 16 (15-37) U/L ALT 26 (12-78) U/L Alkaline Phosphatase 83 (46-116) IU/L Troponin I (0.000-0.056) ng/mL NT-Pro-B Natriuret Pep 288 H (0-125) pg/mL Total Protein 5.4 L (6.4-8.2) g/dL Albumin 2.6 L (3.4-5.0) g/dL Globulin 2.8 Albumin/Globulin Ratio 0.93 Amylase 78 (25-115) U/L Lipase 308 (73-393) U/L TSH, Ultra Sensitive (0.358-3.740) mIU/mL 05/03/21 Range/Units 07:40 WBC (4.0-10.2) K/uL RBC (3.77-5.09) M/uL Hgb (11.7-15.5) g/dL Hct (34.0-46.0) % MCV (84.0-98.0) fL MCH (28.2-33.3) pg MCHC (31.7-36.0) g/dL RDW (11.2-14.1) % Plt Count (150-350) K/uL Neut % (Auto) (45.0-80.0) % Lymph % (Auto) (10.0-50.0) % [place] % (Auto) (2.0-14.0) % Eos % (Auto) (0.0-5.0) % Baso % (Auto) (0.0-2.0) % Neut # (Auto) (1.40-7.00) K/uL Lymph # (Auto) (0.50-3.50) K/uL [place] # (Auto) (0.00-1.00) K/uL Eos # (Auto) (0.00-0.50) K/uL Baso # (Auto) (0.00-0.20) K/uL Sodium 144 (136-145) mmol/L Potassium 4.2 (3.5-5.1) mmol/L Chloride 108 H (98-107) mmol/L Carbon Dioxide 29.1 (21.0-32.0) mmol/L BUN 11 (7-18) mg/dL Creatinine 0.92 (0.51-1.17) mg/dL Est Cr Clr Drug Dosing 80.86 mL/min Estimated GFR (MDRD) > 60 mL/min Glucose 95 (70-99) mg/dL Calcium 8.4 L (8.5-10.1) mg/dL Total Bilirubin (0.2-1.0) mg/dL Direct Bilirubin (0.0-0.2) mg/dL Indirect Bilirubin AST (15-37) U/L ALT (12-78) U/L Alkaline Phosphatase (46-116) IU/L Troponin I 0.014 (0.000-0.056) ng/mL NT-Pro-B Natriuret Pep 147 H (0-125) pg/mL Total Protein (6.4-8.2) g/dL Albumin (3.4-5.0) g/dL Globulin Albumin/Globulin Ratio Amylase (25-115) U/L Lipase (73-393) U/L TSH, Ultra Sensitive 7.474 H (0.358-3.740) mIU/mL Laboratory Tests 05/01/21 05/01/21 05/01/21 Range/Units 13:30 13:30 13:30 WBC 7.5 (4.0-10.2) K/uL RBC 5.11 H (3.77-5.09) M/uL Hgb 15.2 D (11.7-15.5) g/dL Hct 45.9 (34.0-46.0) % MCV 89.8 D (84.0-98.0) fL MCH 29.7 (28.2-33.3) pg MCHC 33.1 (31.7-36.0) g/dL RDW 15.0 H (11.2-14.1) % Plt Count 245 (150-350) K/uL Neut % (Auto) 61.7 (45.0-80.0) % Lymph % (Auto) 27.1 (10.0-50.0) % [place] % (Auto) 8.1 (2.0-14.0) % Eos % (Auto) 2.7 (0.0-5.0) % Baso % (Auto) 0.4 (0.0-2.0) % Neut # (Auto) 4.63 (1.40-7.00) K/uL Lymph # (Auto) 2.03 (0.50-3.50) K/uL [place] # (Auto) 0.61 (0.00-1.00) K/uL Eos # (Auto) 0.20 (0.00-0.50) K/uL Baso # (Auto) 0.03 (0.00-0.20) K/uL PT 9.7 (9.5-12.0) SEC INR 1.0 APTT 24.6 (24.5-32.8) SEC D-Dimer, Quantitative (0-400) ng/mL Sodium 145 (136-145) mmol/L Potassium 3.7 (3.5-5.1) mmol/L Chloride 109 H (98-107) mmol/L Carbon Dioxide 22.1 (21.0-32.0) mmol/L BUN 16 (7-18) mg/dL Creatinine 0.77 (0.51-1.17) mg/dL Est Cr Clr Drug Dosing TNP Estimated GFR (MDRD) > 60 mL/min Glucose 93 (70-99) mg/dL Calcium 8.9 (8.5-10.1) mg/dL Magnesium 1.9 (1.8-2.4) mg/dL Total Bilirubin 0.4 (0.2-1.0) mg/dL Direct Bilirubin (0.0-0.2) mg/dL Indirect Bilirubin AST 18 (15-37) U/L ALT 37 (12-78) U/L Alkaline Phosphatase 105 (46-116) IU/L Troponin I 0.008 (0.000-0.056) ng/mL NT-Pro-B Natriuret Pep (0-125) pg/mL Total Protein 7.0 (6.4-8.2) g/dL Albumin 3.5 (3.4-5.0) g/dL Globulin Albumin/Globulin Ratio Amylase 66 (25-115) U/L Lipase 95 (73-393) U/L TSH, Ultra Sensitive (0.358-3.740) mIU/mL 05/01/21 05/01/21 05/01/21 Range/Units 16:50 16:50 19:37 WBC (4.0-10.2) K/uL RBC (3.77-5.09) M/uL Hgb (11.7-15.5) g/dL Hct (34.0-46.0) % MCV (84.0-98.0) fL MCH (28.2-33.3) pg MCHC (31.7-36.0) g/dL RDW (11.2-14.1) % Plt Count (150-350) K/uL Neut % (Auto) (45.0-80.0) % Lymph % (Auto) (10.0-50.0) % [place] % (Auto) (2.0-14.0) % Eos % (Auto) (0.0-5.0) % Baso % (Auto) (0.0-2.0) % Neut # (Auto) (1.40-7.00) K/uL Lymph # (Auto) (0.50-3.50) K/uL [place] # (Auto) (0.00-1.00) K/uL Eos # (Auto) (0.00-0.50) K/uL Baso # (Auto) (0.00-0.20) K/uL PT (9.5-12.0) SEC INR APTT (24.5-32.8) SEC D-Dimer, Quantitative 267 (0-400) ng/mL Sodium (136-145) mmol/L Potassium (3.5-5.1) mmol/L Chloride (98-107) mmol/L Carbon Dioxide (21.0-32.0) mmol/L BUN (7-18) mg/dL Creatinine (0.51-1.17) mg/dL Est Cr Clr Drug Dosing Estimated GFR (MDRD) mL/min Glucose (70-99) mg/dL Calcium (8.5-10.1) mg/dL Magnesium (1.8-2.4) mg/dL Total Bilirubin (0.2-1.0) mg/dL Direct Bilirubin (0.0-0.2) mg/dL Indirect Bilirubin AST (15-37) U/L ALT (12-78) U/L Alkaline Phosphatase (46-116) IU/L Troponin I 0.011 0.013 (0.000-0.056) ng/mL NT-Pro-B Natriuret Pep (0-125) pg/mL Total Protein (6.4-8.2) g/dL Albumin (3.4-5.0) g/dL Globulin Albumin/Globulin Ratio Amylase (25-115) U/L Lipase (73-393) U/L TSH, Ultra Sensitive (0.358-3.740) mIU/mL 05/02/21 05/02/21 05/02/21 Range/Units 07:15 07:15 07:15 WBC 5.5 (4.0-10.2) K/uL RBC 4.49 (3.77-5.09) M/uL Hgb 13.1 D (11.7-15.5) g/dL Hct 41.5 (34.0-46.0) % MCV 92.4 (84.0-98.0) fL MCH 29.2 (28.2-33.3) pg MCHC 31.6 L (31.7-36.0) g/dL RDW 15.0 H (11.2-14.1) % Plt Count 185 (150-350) K/uL Neut % (Auto) 54.3 (45.0-80.0) % Lymph % (Auto) 32.4 (10.0-50.0) % [place] % (Auto) 10.3 (2.0-14.0) % Eos % (Auto) 2.5 (0.0-5.0) % Baso % (Auto) 0.5 (0.0-2.0) % Neut # (Auto) 2.99 (1.40-7.00) K/uL Lymph # (Auto) 1.79 (0.50-3.50) K/uL [place] # (Auto) 0.57 (0.00-1.00) K/uL Eos # (Auto) 0.14 (0.00-0.50) K/uL Baso # (Auto) 0.03 (0.00-0.20) K/uL PT (9.5-12.0) SEC INR APTT (24.5-32.8) SEC D-Dimer, Quantitative (0-400) ng/mL Sodium 146 H (136-145) mmol/L Potassium 4.3 (3.5-5.1) mmol/L Chloride 113 H (98-107) mmol/L Carbon Dioxide 23.8 (21.0-32.0) mmol/L BUN 16 (7-18) mg/dL Creatinine 0.83 (0.51-1.17) mg/dL Est Cr Clr Drug Dosing 89.62 Estimated GFR (MDRD) > 60 mL/min Glucose 94 (70-99) mg/dL Calcium 7.5 L (8.5-10.1) mg/dL Magnesium 1.8 (1.8-2.4) mg/dL Total Bilirubin (0.2-1.0) mg/dL Direct Bilirubin (0.0-0.2) mg/dL Indirect Bilirubin AST (15-37) U/L ALT (12-78) U/L Alkaline Phosphatase (46-116) IU/L Troponin I 0.023 (0.000-0.056) ng/mL NT-Pro-B Natriuret Pep 288 H (0-125) pg/mL Total Protein (6.4-8.2) g/dL Albumin (3.4-5.0) g/dL Globulin Albumin/Globulin Ratio Amylase 78 (25-115) U/L Lipase 308 (73-393) U/L TSH, Ultra Sensitive (0.358-3.740) mIU/mL 05/02/21 05/03/21 05/03/21 Range/Units 07:15 07:40 07:40 WBC 6.4 (4.0-10.2) K/uL RBC 4.64 (3.77-5.09) M/uL Hgb 13.7 (11.7-15.5) g/dL Hct 42.4 (34.0-46.0) % MCV 91.4 (84.0-98.0) fL MCH 29.5 (28.2-33.3) pg MCHC 32.3 (31.7-36.0) g/dL RDW 14.7 H (11.2-14.1) % Plt Count 208 (150-350) K/uL Neut % (Auto) 59.4 (45.0-80.0) % Lymph % (Auto) 27.9 (10.0-50.0) % [place] % (Auto) 10.2 (2.0-14.0) % Eos % (Auto) 2.2 (0.0-5.0) % Baso % (Auto) 0.3 (0.0-2.0) % Neut # (Auto) 3.77 (1.40-7.00) K/uL Lymph # (Auto) 1.77 (0.50-3.50) K/uL [place] # (Auto) 0.65 (0.00-1.00) K/uL Eos # (Auto) 0.14 (0.00-0.50) K/uL Baso # (Auto) 0.02 (0.00-0.20) K/uL PT (9.5-12.0) SEC INR APTT (24.5-32.8) SEC D-Dimer, Quantitative (0-400) ng/mL Sodium 144 (136-145) mmol/L Potassium 4.2 (3.5-5.1) mmol/L Chloride 108 H (98-107) mmol/L Carbon Dioxide 29.1 (21.0-32.0) mmol/L BUN 11 (7-18) mg/dL Creatinine 0.92 (0.51-1.17) mg/dL Est Cr Clr Drug Dosing 80.86 Estimated GFR (MDRD) > 60 mL/min Glucose 95 (70-99) mg/dL Calcium 8.4 L (8.5-10.1) mg/dL Magnesium (1.8-2.4) mg/dL Total Bilirubin 0.2 (0.2-1.0) mg/dL Direct Bilirubin 0.1 (0.0-0.2) mg/dL Indirect Bilirubin 0.1 AST 16 (15-37) U/L ALT 26 (12-78) U/L Alkaline Phosphatase 83 (46-116) IU/L Troponin I 0.014 (0.000-0.056) ng/mL NT-Pro-B Natriuret Pep 147 H (0-125) pg/mL Total Protein 5.4 L (6.4-8.2) g/dL Albumin 2.6 L (3.4-5.0) g/dL Globulin 2.8 Albumin/Globulin Ratio 0.93 Amylase (25-115) U/L Lipase (73-393) U/L TSH, Ultra Sensitive 7.474 H (0.358-3.740) mIU/mL EDIS Results - Last 24 hrs: None Med Orders - Current: Current Medications Acetaminophen (Acetaminophen 325 Mg Tab) 650 mg PO Q4H PRN PRN Reason: Pain (Mild 1-3)/fever Last Admin: 05/02/21 11:29 Dose: 650 mg Documented by: Albuterol (Albuterol 6.7 Gm Inhaler) 0 gm INH Q6HR PRN PRN Reason: Shortness of Breath Diazepam (Diazepam 5 Mg Tab) 5 mg PO BEDTIME FOR[facility], 1928[facility]1983 Last Admin: 05/02/21 20:49 Dose: 5 mg Documented by: Furosemide (Furosemide 40 Mg/4 Ml Vial) 40 mg IVPUSH Q8H [facility], [facility]1983 Last Admin: 05/03/21 03:12 Dose: Not Given Documented by: Levothyroxine Sodium (Levothyroxine 175 Mcg Tab) 175 mcg PO DAILY [facility], [facility]1983 Last Admin: 05/03/21 08:21 Dose: 175 mcg Documented by: Ondansetron HCl (Ondansetron 4 Mg Tab.Dis) 4 mg PO Q4H PRN PRN Reason: Nausea/Vomiting Pantoprazole Sodium (Pantoprazole 40 Mg Vial) 40 mg IVPUSH Q12H [facility], [facility]1983 Last Admin: 05/03/21 08:19 Dose: 40 mg Documented by: Potassium Chloride (Potassium Chloride 20 Meq Tab.Er) 20 meq PO TID [facility], 1928[facility]1983 Last Admin: 05/03/21 08:21 Dose: 20 meq Documented by: Sodium Chloride (Sodium Chloride 0.9% 10 Ml Syringe) 10 ml FLUSH ASDIRECTED PRN PRN Reason: Keep Vein Open Last Admin: 05/03/21 08:22 Dose: 10 ml Documented by: Discontinued Medications Acetaminophen (Acetaminophen 500 Mg Tab) 1,000 mg PO ONETIME ONE Stop: 05/01/21 14:41 Last Admin: 05/01/21 15:16 Dose: 1,000 mg Documented by: Al Hydroxide/Mg Hydroxide (Gi Cocktail Oral Solution 30 Ml) 30 ml PO ONETIME ONE Stop: 05/01/21 13:45 Last Admin: 05/01/21 13:49 Dose: 30 ml Documented by: Al Hydroxide/Mg Hydroxide (Gi Cocktail Oral Solution 30 Ml) 30 ml PO ONETIME ONE Stop: 05/02/21 14:33 Last Admin: 05/02/21 15:02 Dose: 30 ml Documented by: Al Hydroxide/Mg Hydroxide (Gi Cocktail Oral Solution 30 Ml) Confirm Administered Dose 30 ml .ROUTE .STK-MED ONE Stop: 05/02/21 14:54 Last Admin: 05/02/21 15:02 Dose: Not Given Documented by: Aspirin (Aspirin 81 Mg Tab.Chew) 324 mg PO ONETIME ONE Stop: 05/01/21 13:41 Last Admin: 05/01/21 13:49 Dose: 324 mg Documented by: Diphenhydramine HCl (Diphenhydramine 50 Mg/Ml Sdv) 50 mg IVPUSH ONETIME ONE Stop: 05/01/21 16:30 Last Admin: 05/01/21 16:57 Dose: 50 mg Documented by: Famotidine (Famotidine 20 Mg/2 Ml Sdv) 40 mg IVPUSH ONETIME ONE Stop: 05/02/21 09:16 Last Admin: 05/02/21 10:17 Dose: 40 mg Documented by: Fentanyl (Fentanyl 100 Mcg/2 Ml Sdv) 100 mcg IVPUSH ONETIME ONE Stop: 05/01/21 16:29 Last Admin: 05/01/21 16:54 Dose: 100 mcg Documented by: Sodium Chloride (Normal Saline) 1,000 mls @ 999 mls/hr IV .BOLUS ONE Stop: 05/01/21 14:44 Last Admin: 05/01/21 13:57 Dose: 999 mls/hr Documented by: Sodium Chloride (Normal Saline) 1,000 mls @ 150 mls/hr IV ASDIRECTED [facility], 1928–1983 Last Admin: 05/02/21 05:55 Dose: 150 mls/hr Documented by: Ketorolac Tromethamine (Ketorolac 30 Mg/Ml Sdv) 30 mg IVPUSH ONETIME ONE Stop: 05/01/21 16:29 Last Admin: 05/01/21 16:53 Dose: 30 mg Documented by: Lorazepam (Lorazepam 2 Mg/Ml Sdv) 1 mg IVPUSH ONETIME ONE Stop: 05/01/21 17:57 Last Admin: 05/01/21 18:12 Dose: 1 mg Documented by: Metoclopramide HCl (Metoclopramide 10 Mg/2 Ml Sdv) 20 mg IVPUSH ONETIME ONE Stop: 05/01/21 16:30 Last Admin: 05/01/21 16:57 Dose: 20 mg Documented by: Nitroglycerin (Nitroglycerin 0.4 Mg Tab.Sl) 0.4 mg SL ONETIME ONE Stop: 05/01/21 13:59 Last Admin: 05/01/21 14:05 Dose: 0.4 mg Documented by: Nitroglycerin (Nitroglycerin 0.4 Mg Tab.Sl) 0.4 mg SL ONETIME ONE Stop: 05/01/21 14:13 Last Admin: 05/01/21 14:15 Dose: 0.4 mg Documented by: Nitroglycerin (Nitroglycerin 0.4 Mg Tab.Sl) 0.4 mg SL ONETIME ONE Stop: 05/01/21 14:24 Last Admin: 05/01/21 14:24 Dose: 0.4 mg Documented by: Nitroglycerin (Nitroglycerin 0.4 Mg Tab.Sl) 0.4 mg SL ONETIME ONE Stop: 05/01/21 16:08 Last Admin: 05/01/21 16:08 Dose: 0.4 mg Documented by: Ondansetron HCl (Ondansetron 4 Mg/2 Ml Sdv) 4 mg IVPUSH ONETIME ONE Stop: 05/01/21 13:47 Last Admin: 05/01/21 13:57 Dose: 4 mg Documented by: Potassium Chloride (Potassium Chloride 20 Meq Tab.Er) 20 meq PO TID LEONIE Temazepam (Temazepam 15 Mg Cap) 15 mg PO ONETIME ONE Stop: 05/02/21 23:45 Last Admin: 05/02/21 23:57 Dose: 15 mg Documented by: - Exam Quality Assessment: Reports: DVT Prophylaxis. Denies: Supplemental Oxygen, Central Line/PICC, Urine Catheter, Skin Breakdown, Restraints General: Reports: Alert, Oriented, Cooperative, No Acute Distress HEENT: Reports: Pupils Equal, Pupils Reactive, EOMI, Mucous Membr. Moist/[place]. Denies: Scleral Icterus Neck: Reports: Supple, Trachea Midline, No JVD, No Thyromegaly. Denies: +2 Carotid Pulse wo Bruit, Lymphadenopathy Lungs: Reports: Clear to Auscultation, Normal Respiratory Effort. Denies: Rhonchi, Rub Cardiovascular: Reports: Regular Rate, Regular Rhythm, No Murmurs, Bradycardia (Intermittent). Denies: Gallops, Rubs GI/Abdominal Exam: Normal Bowel Sounds, Soft, Non-Tender, No Organomegaly, No Distention, No Abnormal Bruit, No Mass, Other (Obese). No: Guarding (Female) Exam: Deferred Rectal (Female) Exam: Deferred Back Exam: Reports: Normal Inspection, Full Range of Motion. Denies: CVA Tenderness (L), CVA Tenderness (R), Muscle Spasm Extremities: Normal Inspection, Normal Range of Motion, Non-Tender, No Pedal Edema, Normal Capillary Refill. No: Bud's Sign Skin: Reports: Warm, Dry, Intact, Other (Multiple tattoos). Denies: Ecchymosis Neurological: Reports: No New Focal Deficit, Other (No clinical orthostasis) Psy/Mental Status: Reports: Anxious (Mild to moderate), Depressed (Mild). Denies: Agitated, Hallucinations, Withdrawal Symptoms #1 Interpretation EKG Date: 05/03/21 Time: 09:17 Rhythm: Other (Sinus bradycardianew) Rate (Beats/Min): 55 [place]: Normal (Neutral) P-Wave: Enlarged (Mild diffuse biphasic P waves) QRS: Normal (0.08 seconds acute appreciated) ST-T: Normal QT: Normal AL/PQ Interval: 0.17 seconds with poor R wave progression in the anterior leads Comparison: Change From Previous EKG (As above since 05/02/2021) EKG Interpretation Comments: 1. No acute ischemic changes 2. Sinus bradycardia 3. Left atrial enlargement
[2021-05-03 09:43] VITALS: BP 96/53; PULSE 65
[2021-05-03] MEDS ORDERED: Bacitracin/Neomycin/Polymyxin B Oint 0.9 GM U/D Packet TOP ONE (10:01)
--- NOTE | 2021-05-03 10:02 | PCM.SN.2 ---
- Free Text/Narrative Note: The patient apparently stubbed her toe on the door yesterday with no significant injury. Neosporin dressing placed today. Antibacterial soap wash/soak with subsequent antibacterial dressing such as Neosporin, etc. as directed 2 times per day until the wound completely heals. Keep the area clean and dry with activity restrictions as discussed. Never use hydrogen peroxide for wound care.
[2021-05-03] MEDS ORDERED: Bacitracin Oint 1 GM U/D Packet TOP ONE (10:03)
== END 2021-05-03 10:40 | disposition home or self-care (01) ==
LOC: LL.ED 13:25 → LL.MS 18:05
PROVIDERS: ADMIT Nurse Practitioner Family; ATTEND Nurse Practitioner Family
DX: R07.9 Chest pain, unspecified (principal); R00.1 Bradycardia, unspecified; R10.84 Generalized abdominal pain; J45.20 Mild intermittent asthma, uncomplicated; F19.90 Other psychoactive substance use, unspecified, uncomplicated; F41.8 Other specified anxiety disorders; E88.09 Other disorders of plasma-protein metabolism, not elsewhere classified; E83.51 Hypocalcemia; E03.9 Hypothyroidism, unspecified; E78.5 Hyperlipidemia, unspecified; Z71.6 Tobacco abuse counseling; Z79.890 Hormone replacement therapy; Z79.899 Other long term (current) drug therapy; Z88.0 Allergy status to penicillin; Z91.012 Allergy to eggs; Z91.02 Food additives allergy status; Z91.018 Allergy to other foods
CPT/HCPCS: 36415; 71045; 76700; 80048; 80053; 80076; 82150; 83690; 83735; 83880; 84443; 84484; 85025; 85379; 85610; 85730; 93005; 96374; 96375; 99285; A9270; C9113; J1200; J1885; J1940; J2060; J2405; J2765; J3010; J3490; J7030; 96376; G0378

== ENCOUNTER 2021-06-10 17:38 | Emergency (ER) | payer MEDICAID ==
[2021-06-10] MEDS: Famotidine 20 MG/2 ML SDV IVPUSH ONE (18:01)
[2021-06-10] MEDS: GI Cocktail Oral Solution 30 ML PO ONE (18:01)
[2021-06-10] MEDS: Sodium Chloride 0.9% 10 ML Syringe FLUSH PRN (18:03)
[2021-06-10] MEDS: Sodium Chloride 0.9% 1,000 ML IV ONE (18:08)
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
[2021-06-10 18:23] LABS: ANION GAP 8.8 meq/L (7-15); CHLORIDE,CL 106 mmol/L (98-107); SODIUM,NA 143 mmol/L (136-145)
[2021-06-10] MEDS: Iopamidol 612 MG/ML 100 ML Bottle IVPUSH ONE (18:51)
[2021-06-10] MEDS: Ketorolac 30 MG/ML SDV IVPUSH ONE (19:06)
[2021-06-10] MEDS: Magnesium Oxide 400 MG Tab PO ONE (19:12)
[2021-06-10 20:25] VITALS: BP 119/76; PULSE 77
== END 2021-06-10 19:45 | disposition home or self-care (01) ==
LOC: LL.ED 17:38
DX: R07.9 Chest pain, unspecified (principal); R10.13 Epigastric pain; E83.42 Hypomagnesemia; J45.909 Unspecified asthma, uncomplicated; M10.9 Gout, unspecified; E03.9 Hypothyroidism, unspecified; E66.9 Obesity, unspecified; Z72.0 Tobacco use; Z91.012 Allergy to eggs; Z91.018 Allergy to other foods; Z88.0 Allergy status to penicillin; Z88.5 Allergy status to narcotic agent; Z79.899 Other long term (current) drug therapy
CPT/HCPCS: 36415; 71046; 74177; 80053; 81003; 83690; 83735; 84484; 85025; 93005; 96374; 96375; 99285; A9270; J1885; J3490; J7030; Q9967; 93010; 99284

== ENCOUNTER 2022-01-08 11:50 | Emergency (ER) | payer MEDICAID ==
[2022-01-08] MEDS: diphenhydrAMINE 50 MG/ML SDV IM ONE (12:03)
[2022-01-08] MEDS: Promethazine 25 MG/ML SDV IM ONE (12:05)
[2022-01-08] MEDS: Ketorolac 30 MG/ML SDV IM ONE (12:07)
[2022-01-08 15:09] VITALS: BP 112/71; PULSE 75
== END 2022-01-08 12:54 | disposition home or self-care (01) ==
LOC: LL.ED 11:50
DX: G43.909 Migraine, unspecified, not intractable, without status migrainosus (principal); E78.00 Pure hypercholesterolemia, unspecified; Z91.012 Allergy to eggs; Z88.0 Allergy status to penicillin; Z91.018 Allergy to other foods; Z79.899 Other long term (current) drug therapy; Z88.5 Allergy status to narcotic agent
CPT/HCPCS: 96372; 99283; 99284; J1200; J1885; J2550

== ENCOUNTER 2022-02-06 21:10 | Emergency (ER) | payer MEDICAID ==
[2022-02-06] MEDS ORDERED: Ketorolac 30 MG/ML SDV IM ONE (21:22)
[2022-02-06 22:27] VITALS: BP 114/87; PULSE 99
== END 2022-02-06 21:50 | disposition home or self-care (01) ==
LOC: LL.ED 21:10
DX: J30.9 Allergic rhinitis, unspecified (principal); H92.02 Otalgia, left ear; E78.00 Pure hypercholesterolemia, unspecified; M10.9 Gout, unspecified; M19.90 Unspecified osteoarthritis, unspecified site; Z91.012 Allergy to eggs; Z88.0 Allergy status to penicillin; Z91.018 Allergy to other foods; Z88.5 Allergy status to narcotic agent; Z88.8 Allergy status to other drugs, medicaments and biological substances; Z79.899 Other long term (current) drug therapy
CPT/HCPCS: 96372; 99283; J1885; 99284

== ENCOUNTER 2022-07-08 14:04 | Emergency (ER) | payer MEDICAID ==
[2022-07-08] MEDS ORDERED: GI Cocktail Oral Solution 30 ML PO ONE (14:45)
[2022-07-08 15:04] LABS: ANION GAP 8.5 meq/L (7-15)
[2022-07-08] MEDS ORDERED: Iopamidol 755 Mg/ML 100 ML Bottle IVPUSH ONE (15:19)
[2022-07-08] MEDS ORDERED: LORazepam 2 MG/ML SDV IVPUSH ONE (15:26)
[2022-07-08] MEDS ORDERED: Ketorolac 30 MG/ML SDV IVPUSH ONE (16:37)
[2022-07-08] MEDS ORDERED: Ondansetron 4 MG/2 ML SDV IVPUSH ONE (16:48)
[2022-07-08] MEDS ORDERED: Morphine 2 MG/ML SYRINGE IVPUSH ONE (16:48)
[2022-07-08] MEDS ORDERED: Metoprolol Tartrate 25 MG Tab PO ONE (17:03)
[2022-07-08] MEDS: Sodium Chloride 0.9% 10 ML Syringe FLUSH PRN ×2 (17:19→17:24)
[2022-07-08 17:37] VITALS: PULSE 58
[2022-07-08] MEDS ORDERED: Pantoprazole 40 MG Tab.CR PO ONE (17:48)
[2022-07-08 18:24] VITALS: BP 122/62
== END 2022-07-08 18:22 | disposition home or self-care (01) ==
LOC: LL.ED 14:04
DX: R07.89 Other chest pain (principal); E03.9 Hypothyroidism, unspecified; F17.210 Nicotine dependence, cigarettes, uncomplicated; Z91.012 Allergy to eggs; Z88.0 Allergy status to penicillin; Z88.5 Allergy status to narcotic agent; Z91.018 Allergy to other foods; Z79.899 Other long term (current) drug therapy
CPT/HCPCS: 36415; 71046; 71275; 80053; 81003; 83605; 83735; 83880; 84443; 84484; 85025; 85379; 93005; 93010; 96374; 96375; 99284; 99285-25; A9270-GY; J1885; J2060; J2270; J2405; J3490; Q9967

== ENCOUNTER 2023-03-30 22:04 | Emergency (ER) | payer MEDICAID ==
[2023-03-30] MEDS ORDERED: Sodium Chloride 0.9% 10 ML Syringe FLUSH PRN (22:15)
[2023-03-30 22:37] LABS: BASOPHILS ABSOLUTE AUTO 0.04 K/uL (0.00-0.20); BASOPHILS PERCENT AUTO 0.5 % (0.0-2.0); EOSINOPHILS ABSOLUTE AUTO 0.14 K/uL (0.00-0.50); EOSINOPHILS PERCENT AUTO 1.6 % (0.0-5.0); HEMATOCRIT 43.5 % (34.0-46.0); LYMPHOCYTES ABSOLUTE AUTO 2.57 K/uL (0.50-3.50); MEAN CORPUSCULAR HEMOGLOBIN 29.4 pg (28.2-33.3); MEAN CORPUSCULAR HGB CONC 32.2 g/dL (31.7-36.0); MEAN CORPUSCULAR VOLUME 91.4 fL (84.0-98.0); MONOCYTES ABSOLUTE AUTO 0.64 K/uL (0.00-1.00); MONOCYTES PERCENT AUTO 7.2 % (2.0-14.0); NEUTROPHILS ABSOLUTE AUTO 5.46 K/uL (1.40-7.00); NEUTROPHILS PERCENT AUTO 61.7 % (45.0-80.0); PLATELET COUNT,PLT 210 K/uL (150-350); RED BLOOD CELL COUNT 4.76 M/uL (3.77-5.09); RED CELL DISTRIBUTION WIDTH 14.9 % (11.2-14.1); WHITE BLOOD CELL COUNT,WBC 8.9 K/uL (4.0-10.2)
[2023-03-30 23:02] LABS: ALANINE AMINOTRANSFERASE,ALT 32 U/L (12-78); ALBUMIN 3.5 g/dL (3.4-5.0); ALKALINE PHOSPHATASE 107 IU/L (46-116); ANION GAP 9.1 meq/L (7-15); ASPARTATE AMNIOTRANSFERASE,AST 25 U/L (15-37); BILIRUBIN TOTAL 0.5 mg/dL (0.2-1.0); BLOOD UREA NITROGEN,BUN 15 mg/dL (7-18); C-REACTIVE PROTEIN 0.8 mg/dL (<=0.9); CALCIUM 8.7 mg/dL (8.5-10.1); CARBON DIOXIDE,CO2 23.9 mmol/L (21.0-32.0); CHLORIDE,CL 107 mmol/L (98-107); CREATININE 1.02 mg/dL (0.51-1.17); ESTIMATED GFR 66 mL/min (>=60); GLUCOSE RANDOM 118 mg/dL (70-99); MAGNESIUM 1.6 mg/dL (1.8-2.4); POTASSIUM,K 3.7 mmol/L (3.5-5.1); PROTEIN TOTAL,TP 6.7 g/dL (6.4-8.2); SODIUM,NA 140 mmol/L (136-145)
[2023-03-31 00:46] VITALS: BP 108/80; PULSE 66
== END 2023-03-30 23:32 | disposition home or self-care (01) ==
LOC: LL.ED 22:04
DX: M54.2 Cervicalgia (principal); R20.0 Anesthesia of skin; E03.9 Hypothyroidism, unspecified; E11.9 Type 2 diabetes mellitus without complications; F17.210 Nicotine dependence, cigarettes, uncomplicated; E66.9 Obesity, unspecified; Z68.30 Body mass index [BMI] 30.0-30.9, adult; Z91.012 Allergy to eggs; Z91.018 Allergy to other foods; Z88.5 Allergy status to narcotic agent; Z88.0 Allergy status to penicillin; Z91.014 Allergy to mammalian meats
CPT/HCPCS: 36415; 80053; 83735; 84484; 85025; 86140; 93005; 99284

== ENCOUNTER 2023-09-03 07:34 | Emergency (ER) | payer MEDICAID, OTHER ==
[2023-09-03 07:56] VITALS: BP 107/80; PULSE 68
== END 2023-09-03 08:15 | disposition home or self-care (01) ==
LOC: LL.ED 07:34 → SUPCPDRO 07:34 → LL.ED 08:15
DX: M25.471 Effusion, right ankle (principal); J45.909 Unspecified asthma, uncomplicated; E03.9 Hypothyroidism, unspecified; Z88.0 Allergy status to penicillin; Z91.012 Allergy to eggs; Z91.018 Allergy to other foods; Z88.5 Allergy status to narcotic agent; Z79.899 Other long term (current) drug therapy
CPT/HCPCS: 99283; 99284